=== PATIENT | female | born 1995 | race Caucasian/White ===

== ENCOUNTER → 2016-03-04 | Outpatient (REF) | payer BC | LOC: M LAB REF 13:02 | PROVIDERS: ATTEND Obstetrics & Gynecology | DX: Z34.83 Encounter for supervision of other normal pregnancy, third trimester (principal) ==

== ENCOUNTER → 2016-03-18 | Outpatient (REF) | payer BC | LOC: M LAB REF 17:13 | PROVIDERS: ATTEND Obstetrics & Gynecology | DX: Z34.83 Encounter for supervision of other normal pregnancy, third trimester (principal) ==

== ENCOUNTER 2016-04-15 20:40 | Inpatient (IN) | payer BC ==
[2016-04-15] VITALS (12 sets, daily range): BP systolic 113–141; BP diastolic 51–80
[~2016-04-15] VITALS: Ht 152.4 cm; Wt 102.0 kg
[2016-04-15] MEDS ORDERED: PRENTAB9 PO (21:02)
[2016-04-15 22:23] LABS: MEAN CORPUSCULAR HEMOGLOBIN 27.4 pg (27.0-33.0); MEAN CORPUSCULAR VOLUME 85.7 fl (80.0-96.0); RED CELL DISTRIBUTION WIDTH 14.2 % (11.5-14.5)
[2016-04-15] MEDS ORDERED: FENTANYL 2MCG/ML ROPIVACAINE 0.2% NACL 250 ML CADD As Ordered ONE (22:40)
[2016-04-15] MEDS ORDERED: LACTATED RINGER'S 1000 ML IV STA (22:44)
[2016-04-15] MEDS ORDERED: ONDANSETRON 4MG/2ML VIAL (J2405) IV PRN (23:30)
[2016-04-15] MEDS ORDERED: OXYTOCIN DRIP 30 UNITS in APPROPRIATE DILUENT 1 EA IV SCH (23:30)
[2016-04-15] MEDS ORDERED: diphenhydrAMINE INJ 50MG/ML VIAL (J1200) IV PRN (23:30)
[2016-04-15] MEDS ORDERED: EPIDURAL/PCA KEYS XX PRN (23:30)
[2016-04-15] MEDS ORDERED: EPIDURAL COMMENT XX SCH (23:30)
[2016-04-15] MEDS ORDERED: REFRIGERATOR IV KEYS XX PRN (23:30)
[2016-04-15] MEDS ORDERED: LACTATED RINGER'S 1000 ML IV PRN (23:30)
[2016-04-15] MEDS ORDERED: ePHEDrine SULFATE 25 MG/5 ML(5MG/ML) SYRINGE IV PRN (23:30)
[2016-04-15] MEDS ORDERED: FENTANYL/ROPIVACAINE/NACL CADD 250 ML EPIDURAL SCH (23:30)
[2016-04-15] MEDS ORDERED: NALOXONE INJ 0.4 MG/1 ML VIAL (J2310) IV PRN (23:30)
[2016-04-16] VITALS (55 sets, daily range): BP systolic 89–169; BP diastolic 46–93
[2016-04-16] MEDS: LR 1,000 ML IV SCH ×3 (02:09→19:18)
[2016-04-16] MEDS ORDERED: BICITRA 30ML SOLN UDC PO ONE (17:00)
[2016-04-16] MEDS ORDERED: MORPHINE PRES-FREE INJ 10 MG/10 ML VIAL (J2274) As Ordered ONE (17:50)
[2016-04-16] MEDS ORDERED: MIDAZOLAM INJ 2 MG/2 ML VIAL (J2250) As Ordered ONE (18:28)
[2016-04-16] MEDS ORDERED: ERYTHROMYCIN OPHTH OINT OU ONE (18:45)
[2016-04-16] MEDS ORDERED: PHYTONADIONE 1 MG/0.5 ML SYRINGE (J3430) IM ONE (18:45)
[2016-04-16] MEDS ORDERED: HEPATITIS B VAC *BIRTH DOSE ONLY*(ENGERIX) 10 MCG/0.5 ML SYRINGE IM ONE (18:45)
[2016-04-16] MEDS: OXYTOCIN DRIP 30 UNITS in APPROPRIATE DILUENT 1 EA IV SCH ×2 (19:18→19:49)
[2016-04-16] MEDS ORDERED: PERCOCET 5MG/325MG TAB PO PRN ×2 (19:30→19:45)
[2016-04-16] MEDS ORDERED: RHOGAM 300 MCG (1500 IU) INJ (J2790) IM SCH (19:30)
[2016-04-16] MEDS ORDERED: MOM 30ML SUSPENSION UDC PO PRN (19:30)
[2016-04-16] MEDS ORDERED: MEASLES,MUMPS,RUBELLA VACCINE INJ (MMR-II) (90707) SC SCH (19:30)
[2016-04-16] MEDS ORDERED: KETOROLAC 30 MG/ML VIAL (J1885) IV PRN (19:45)
[2016-04-16] MEDS ORDERED: fentaNYL 100 MCG/2 ML INJECTION (J3010) IV PRN (19:45)
[2016-04-16] MEDS ORDERED: ONDANSETRON 4MG/2ML VIAL (J2405) IV PRN (19:45)
[2016-04-16] MEDS ORDERED: LR 1,000 ML IV SCH (19:45)
--- NOTE | 2016-04-16 20:08 | RO ---
DATE OF PROCEDURE: 04/16/2016 PREPROCEDURE DIAGNOSIS: 1. Arrested dilation. 2. Chorioamnionitis. POSTPROCEDURE DIAGNOSIS: 1. Arrested dilation. 2. Chorioamnionitis. PROCEDURE: Primary low transverse section. SURGEON: Jaqui Sheehan MD MARKETING DIRECTOR: Reza Orozco MD ANESTHESIA: Epidural ESTIMATED BLOOD LOSS: 500 mL URINE OUTPUT: 100 mL INTRAVENOUS FLUIDS: 1700 mL of lactated Ringers solution. PREOPERATIVE ANTIBIOTICS: 2 grams of Ancef. SPECIMENS: Cord blood and placenta. OPERATIVE FINDINGS: Live born female infant, Apgars 8 and 8. Weight 3562 grams, 7 pounds 14 ounces. INDICATION FOR OPERATION: A 21-year-old 1 presented in active labor. Labor progressed, became protracted at approximately 6 cm. She did progress to 9 cm dilation, completely effaced, and -1 station. Arrested there for several hours. She was then consented for a primary low transverse section for arrested dilatation. Shortly before proceeding to section there was a maternal temperature of 101 along with maternal tachycardia. She was diagnosed with chorioamnionitis and has since been treated with Unasyn. DESCRIPTION OF PROCEDURE: After informed consent was obtained and written consent was reviewed, the patient was brought to the operating room where she was prepped and draped in a normal sterile fashion. A Geller catheter had previously been placed and set to gravity. Anesthesia was tested and deemed to be adequate. A Pfannenstiel skin incision was then made and carried down through the underlying rectus fascia. The fascia was scored. This incision was extended bilaterally. The fascia was then dissected off the underlying rectus muscles both superiorly and inferiorly. The rectus muscles were in the midline. The peritoneum was then entered. The vesicoureteral peritoneum was then identified, was tented and excised to create a bladder flap. The bladder blade was then placed to retract back the bladder. A curvilinear incision was made in the lower uterine segment. head was then brought to level of the incision and was delivered atraumatically. This was followed by shoulder and corpus. Cord was clamped times two and was cut. was taken over to the warmer with a good cry. Cord blood was then obtained. The placenta was drained and delivered grossly intact. The uterus was then exteriorized and cleaned of all clots and debris. The uterus incision was then closed in two layers using #0 Vicryl first layer in a running locking fashion, followed by a second layer for imbrication in a running nonlocking fashion. The abdomen was then suctioned. The uterus was returned in the patient's abdomen, was inspected and noted to be hemostatic. The anterior peritoneum was then reapproximated with #3-0 Vicryl. The rectus muscles then reapproximated with #3-0 Vicryl. The Fascia was then closed with #0 Vicryl in a running nonlocking fashion. The subcutaneous tissue was then irrigated and suctioned, Reza's fascia was reapproximated in #3-0 Vicryl. Subdermal stitches were placed with #3-0 Vicryl and the skin was closed with #4-0 Monocryl in a subcuticular fashion. The incision was then cleaned and dried. Mastisol was applied above and below the incisoin. Steri-Strips were applied over the incision. The incision was dressed. The patient was then taken to the recovery room in stable condition. Counts were correct and the couple has decided to name their daughter, Dinorah. ODALIS
[2016-04-16] MEDS: DOCUSATE SODIUM 100 MG CAP PO PRN (21:04)
[2016-04-16] MEDS ORDERED: NALBUPHINE HCL 10 MG/ML AMP (J2300) IV STA (22:09)
[2016-04-17] MEDS: OXYTOCIN DRIP 30 UNITS in APPROPRIATE DILUENT 1 EA IV SCH ×2 (00:28→00:59)
[2016-04-17] MEDS: AMPICILLIN SOD/SULBACTAM SOD 3 GM in D5W MINI-BAG PLUS 100 ML IV SCH ×5 (01:30→19:43)
[2016-04-17] MEDS: KETOROLAC 30 MG/ML VIAL (J1885) IV SCH ×4 (01:30→13:54)
[2016-04-17 02:21] VITALS: BP 95/55
[2016-04-17] MEDS: LR 1,000 ML IV SCH ×3 (03:18→19:18)
[2016-04-17 06:07] VITALS: BP 102/57
[2016-04-17 06:50] LABS: MEAN CORPUSCULAR HEMOGLOBIN 27.9 pg (27.0-33.0); MEAN CORPUSCULAR HGB CONC 32.2 g/dl (32.0-36.5); MEAN CORPUSCULAR VOLUME 86.6 fl (80.0-96.0); RED CELL DISTRIBUTION WIDTH 14.5 % (11.5-14.5); WHITE BLOOD COUNT 23.6 K/mm3 (4.0-10.0)
[2016-04-17] MEDS ORDERED: IBUP800T23 PO (07:54)
[2016-04-17] MEDS ORDERED: OXYC1TAB23 PO (08:00)
[2016-04-17] MEDS: PRENATAL VITAMIN TAB PO SCH (09:00)
[2016-04-17 10:00] VITALS: BP 107/53
[2016-04-17 15:52] VITALS: BP 118/62
[2016-04-17] MEDS: PERCOCET 5MG/325MG TAB PO PRN ×2 (15:57→22:25)
[2016-04-17 17:58] VITALS: BP 109/61
[2016-04-17] MEDS: DOCUSATE SODIUM 100 MG CAP PO PRN (20:45)
[2016-04-17] MEDS: IBUPROFEN 800 MG TAB PO SCH (20:45)
[2016-04-17 22:05] VITALS: BP 114/58
[2016-04-18] MEDS: AMPICILLIN SOD/SULBACTAM SOD 3 GM in D5W MINI-BAG PLUS 100 ML IV SCH ×2 (02:48→07:57)
[2016-04-18 05:56] VITALS: BP 106/56
[2016-04-18] MEDS: IBUPROFEN 800 MG TAB PO SCH (06:02)
[2016-04-18] MEDS: PERCOCET 5MG/325MG TAB PO PRN (06:03)
[2016-04-18] MEDS: OXYTOCIN DRIP 30 UNITS in APPROPRIATE DILUENT 1 EA IV SCH (07:36)
[2016-04-18] MEDS: PRENATAL VITAMIN TAB PO SCH (07:57)
--- NOTE | 2016-04-18 09:38 | DSES ---
DATE OF ADMISSION: 04/15/2016 DATE OF DISCHARGE: 04/18/2016 DISCHARGE DIAGNOSIS: Primary low transverse section, postop day 2, stable condition. HISTORY: Prachi Bowen is a 21-year-old 1, para 1-0-0-1 now who was admitted to labor and delivery in active labor. A diagnosis of arrest of dilation and chorioamnionitis was made and the decision to have a primary section. Surgeon Dr. Jaqui Sheehan, assistant softball coach Dr. Reza Orozco. Her surgery was complicated. She delivered a live female weighing 3562 grams, 7 pounds 14 ounces, scores 8 and 8. The is in the intensive care unit because of the diagnosis of chorioamnionitis. The postoperative course has been uncomplicated. She has been out of bed for self care, rochelle care. She has ambulated to the intensive care unit. She is breast-feeding. She denies any complaints today. She denies dizziness, heart palpitations. She does desire discharge. Her pain has been well controlled with p.o. Percocet. OBJECTIVE: Vital signs stable. Temperature 95.9, pulse 92, respirations 17, blood pressure 105/56. On 04/15/2016 her hemoglobin was 10.9, hematocrit 34.2, platelets 293. On 04/17/2016 her hemoglobin was 8.9, hematocrit 27.7, and platelets 245. Her breasts are soft and nontender. Her abdomen is fundus firm, one fingerbreadth below the umbilicus. Her incision has Steri-Strips are in place. There is a scant amount of bloody drainage. There is no redness. No warmth. No edema. Her perineum is intact. Lochia rubra scant. Bilateral lower extremities with bilateral edema +2 pitting. Heart rate is regular rhythm. Lungs are clear to auscultate. PLAN: Discharge the patient home today. I did review discharge instructions including breast care, incision care, rochelle care, pelvic rest, activity and lifting restrictions, access to care and other danger signs which to report to her provider. Prescriptions for Percocet 5/325 have been E-prescribed by surgeon. She is to take 1-2 tablets every 6 hours as needed for pain as needed. She is to follow up at [facility] for a 2-week incision check and a 6-week visit.
== END 2016-04-18 10:30 | disposition home or self-care (01) | DRG 540 ==
LOC: M LDO 20:40 → M LDI 21:12 → M OBS 04-16 20:16
PROVIDERS: ADMIT Obstetrics & Gynecology; ATTEND Obstetrics & Gynecology
PROC: 10D00Z1 Extraction of Products of Conception, Low, Open Approach (ICD-10-PCS; principal; 2016-04-16 19:26)
DX: O62.0 Primary inadequate contractions (principal); O41.1230 Chorioamnionitis, third trimester, not applicable or unspecified; Z37.0 Single live birth; Z3A.39 39 weeks gestation of pregnancy

== ENCOUNTER 2016-04-20 23:10 | Emergency (ER) | payer BC ==
[~2016-04-20 23:10] MED LIST: IBUP800T23 PO; OXYC1TAB23 PO; PRENTAB9 PO
[2016-04-21 00:11] LABS: BASO % 0.3 % (0.0-1.0); EOS # 0.4 K/mm3 (0.0-0.50); EOS % 4.7 % (0.0-3.0); LARGE UNSTAINED CELL # 0.1 K/mm3 (0.0-0.4); LARGE UNSTAINED CELL % 1.1 % (0.0-4.0); LYMPH # 1.9 K/mm3 (1.5-6.5); LYMPH % 22.7 % (24.0-44.0); MEAN CORPUSCULAR HEMOGLOBIN 26.7 pg (27.0-33.0); MEAN CORPUSCULAR HGB CONC 31.5 g/dl (32.0-36.5); MEAN CORPUSCULAR VOLUME 84.8 fl (80.0-96.0); MONO # 0.4 K/mm3 (0.0-0.8); MONO % 5.2 % (0.0-5.0); NEUTROPHILS # 5.2 K/mm3 (1.8-7.7); PLATELET COUNT, AUTOMATED 333 k/mm3 (150-450); RED CELL DISTRIBUTION WIDTH 14.1 % (11.5-14.5); WHITE BLOOD COUNT 7.9 K/mm3 (4.0-10.0)
[2016-04-21 00:34] LABS: ALBUMIN 2.1 GM/DL (3.2-5.2); ALBUMIN/GLOBULIN RATIO 0.49 (1.00-1.93); ALKALINE PHOSPHATASE 125 U/L (45-117); ALT/SGPT 38 U/L (12-78); ANION GAP 8 MEQ/L (8-16); AST/SGOT 44 U/L (15-37); BILIRUBIN,DIRECT < 0.1 MG/DL (0.0-0.2); BILIRUBIN,TOTAL 0.2 MG/DL (0.2-1.0); BLOOD UREA NITROGEN 14 MG/DL (7-18); CARBON DIOXIDE LEVEL 26 MEQ/L (21-32); CHLORIDE LEVEL 106 MEQ/L (98-107); CREATININE FOR GFR 0.62 MG/DL (0.55-1.02); GLOMERULAR FILTRATION RATE > 60.0 (>60); GLUCOSE, FASTING 89 MG/DL (70-105); SODIUM LEVEL 140 MEQ/L (136-145); TOTAL PROTEIN 6.4 GM/DL (6.4-8.2)
--- NOTE | 2016-04-21 02:20 | REPUSA ---
CLINICAL HISTORY: Edema. COMMENTS: Real time sonography with duplex doppler of the extremities bilaterally was performed with attention to the major deep venous structures. Evaluation reveals the common femoral, superficial femoral and popliteal veins bilaterally to be comp letely compressible without intraluminal thrombus. There is normal spontaneous phasic flow and augmen tation in all deep veins. The greater saphenous/common femoral vein junctions are patent bilaterally. IMPRESSION: No evidence of DVT in the lower extremities bilaterally. Thank you for your kind referral of this patient.
--- NOTE | 2016-04-21 03:40 | REPUSA ---
CLINICAL HISTORY: Shortness of breath. TECHNIQUE: Multiple axial CT images were obtained through chest with IV contrast material. MPR haines l and sagittal sequences were obtained. COMMENTS: There is no evidence of pleural or parenchymal mass. There are no pleural effusions. There is no evid ence of hilar or mediastinal lymphadenopathy. The heart and great vessels are within normal limits. Bilateral basilar atelectatic pulmonary changes. The visualized portions of the liver are of uniform attenuation without mass or defect. There is no i ntra or extrahepatic biliary ductal dilatation. The spleen is unremarkable. The visualized pancreas i s of normal contour and attenuation characteristics. There is no evidence of adrenal mass. The visual ized portions of the kidneys present no abnormalities. The bony structures are free of lytic or blastic lesions. Moderate large bowel fecal stasis. IMPRESSION: Bilateral basilar atelectatic pulmonary changes. Thank you for your kind referral of this patient.
--- NOTE | 2016-04-21 03:50 | REPUSA ---
CLINICAL HISTORY: Abdominal pain. TECHNIQUE: Multiple axial, sagittal and coronal CT images were obtained through the abdomen and pelvi s without administration of oral or IV contrast material. COMMENTS: The liver is of uniform attenuation without mass or defect. There is no intra or extrahepatic biliary ductal dilatation. The spleen is normal. The gallbladder is distended. The pancreas is of normal con tour and attenuation characteristics. There is no evidence of adrenal mass. The kidneys are normal in size, shape and configuration. No renal or ureteral calculi are identified. There is no hydroureter or hydronephrosis. There is no evidence for appendicitis. There is no bowel wall thickening. No evidence for small or la rge bowel obstruction. There is no evidence of abdominal ascites or lymphadenopathy. There is no evidence of intrinsic or extrinsic bladder mass. There is no pelvic ascites or lymphadeno jefferson. Moderate-sized fecal stasis. Post gravid uterus. Free fluid and fat stranding in the pelvis. Diffuse thickening of the bladder. Cutaneous fat stranding and edema of the lower aspect of the anterior abdominal wall from recent surg ical intervention. Images of the lung bases show no evidence of pleural or parenchymal mass. There are no pleural effusi ons. Bilateral basilar atelectatic pulmonary changes. The bony structures are free of lytic or blastic lesions. IMPRESSION: Post gravid uterus. Surgical changes. No drainable fluid collection. Subcutaneous fat stranding with a soft tissue emphysema of the lower aspect of the anterior abdominal wall. Probably postsurgical. Constipation. Distended gallbladder. Thank you for your kind referral of this patient.
[2016-04-21] MEDS ORDERED: FUROSEMIDE 20 MG/2 ML VIAL (J1940) As Ordered ONE (04:29)
--- NOTE | 2016-04-21 05:19 | EDDOCDS ---
Physician Documentation [facility] Name: Prachi Bowen Age: 21 yrs Sex: Female : 1995 Arrival Date: 04/20/2016 Time: 23:10 Bed 6 Private MD: Alma Delia Irwin Disposition: 04/21/16 05:04 Discharged to Home/Self Care. Impression: Edema, not elsewhere classified. - Condition is Stable. - Discharge Instructions: Edema, Edema, [id number]. - Prescriptions for Lasix 20 mg Oral Tablet - take 1 tablet by ORAL route once daily; 10 tablet. - Medication Reconciliation, Local Pharmacy Hours form. - Follow up: Jaqui Sheehan MD; When: As previously arranged; Reason: Continuance of care. - Problem is an acute exacerbation. - Symptoms have improved. - Notes: YOUR BLOOD WORK INDICATES THAT YOU ARE RETAINING FLUID. I SPOKE WITH DR. SHEEHAN WHO FEELS IT IS LIKELY DUE TO THE LARGE AMOUNT OF FLUID YOU RECEIVED DURING YOUR INDUCTION. TAKE THE FLUID PILLS PRESCRIBED AND FOLLOW UP WITH YOUR OBGYN PREVIOUSLY ARRANGED. Historical: - Allergies: IODINEIODINE CONTAINING; Betadine; - Home Meds: 1. Percocet 5-325 mg Oral tab 1 tab every 4 hours 2. ibuprofen 600 mg Oral tab 1 tab 4 times per day - PMHx: brain cyst; - PSHx: Left hand web removal; c section; - Social history: Smoking status: Patient states was never smoker of tobacco. No barriers to communication noted, The patient speaks fluent Georgian, Speaks appropriately for age. - Family history: Pertinent for mother dx CHF after first childbirth. - : The pt / caregiver states he / she is not on anticoagulants. Home medication list is obtained from the patient. - Exposure Risk Screening:: None identified. Vital Signs: 04/20 23:11 BP 135 / 70; Pulse 91; Resp 18 S; Temp 98.7(O); Pulse Ox 100% on R/A; Weight 121.11 kg gr2 / 267 lbs (R); Height 5 ft. 1 in. (154.94 cm) (R); Pain 8/10; 04/21 01:31 BP 122 / 58 (auto/); mv5 01:32 Pulse Ox 100% ; mv5 02:01 BP 130 / 62 (auto/); mv5 02:01 Pulse 85; Resp 16; Pulse Ox 96% ; mv5 03:31 BP 127 / 59; Pulse 75; Resp 16; Pulse Ox 95% on R/A; mv5 03:39 BP 135 / 62 (auto/); mv5 03:40 Pulse 90; Resp 18; Pulse Ox 95% ; mv5 04:09 BP 138 / 65 (auto/); mv5 04:10 Pulse 86; Resp 16; Pulse Ox 94% ; mv5 05:11 BP 114 / 59 (auto/); mv5 05:11 Pulse 89; Resp 16; Temp 99.1(TE); Pulse Ox 99% ; mv5 02/ 23:11 Body Mass Index 50.45 (121.11 kg, 154.94 cm) gr2 MDM: 00:01 Senior [employer] Laboratory Director/Pulse Ox/q 30 min VS ordered. mm11 00:01 IV Saline Lock ordered. mm11 00:01 Rhythm Strip to chart ordered. mm11 00:01 Undress patient appropriately for examination ordered. mm11 00:02 ECHOCARDIOGRAM,DOPPLER/COLOR FLOW+CARDIAG ordered. EDMS 00:02 B-Type Natiuretic Peptide Ordered. EDMS 00:02 Basic Metabolic Profile Ordered. EDMS 00:02 CBC with Diff Ordered. EDMS 00:02 Cardiac Injury Profile Ordered. EDMS 00:02 Troponin Ordered. EDMS 00:03 ECG WITH READING ER PHYS+CARDIAG ordered. EDMS 00:03 Chest, 2 View (pa\E\lat) Ordered. EDMS 00:03 UA Ordered. EDMS 00:09 LIVER PROFILE Ordered. EDMS 00:26 Duplex, Ext LOWER veins, bilat Ordered. EDMS 01:03 Financial registration complete. gjb 01:41 B-Type Natiuretic Peptide Reviewed. mm11 01:41 Basic Metabolic Profile Reviewed. mm11 01:41 CBC with Diff Reviewed. mm11 01:41 LIVER PROFILE Reviewed. mm11 01:41 Cardiac Injury Profile Reviewed. mm11 01:41 Troponin Reviewed. mm11 01:44 CT Chest Without Contrast Ordered. EDMS 01:44 CT ABD & PELVIS: No Contrast Ordered. EDMS 02:01 [facility] Payment Agreement was scanned into [employer] and attached to record. gjb 02:36 UA Reviewed. mm11 02:36 Duplex, Ext LOWER veins, bilat Reviewed. mm11 04:24 Furosemide 20 mg IVP once ordered. mm11 Administered Medications: 04:33 Drug: Furosemide 20 mg [furosemide 10 mg/mL injection solution (2 mL)] Route: IVP; mv5 Site: left hand; 05:18 Follow up: Response: No Adverse Reaction mv5 Signatures: Dispatcher [employer] EDMS Mikey Lim, DO mm11 Alicia Khan RN RN [id number] Bernice Snow Megan, RN RN mv5 The chart was reviewed and I authenticate all verbal orders and agree with the evaluation and treatment provided.Corrections: (The following items were deleted from the chart) 00:09 00:03 LIVER PROFILE+LAB ordered. EDMS EDMS 00:26 00:05 Duplex, Ext,LOWER veins,unilat+US ordered. EDMS EDMS Attachments: 02:01 [facility] Payment Agreement julius MTDD
--- NOTE | 2016-04-21 05:19 | EDDOCDS ---
Nurse's Notes [facility] Name: Prachi Bowen Age: 21 yrs Sex: Female : 1995 Arrival Date: 04/20/2016 Time: 23:10 Bed 6 Private MD: Alma Delia Irwin Diagnosis: Edema, not elsewhere classified Presentation: 04/20 23:15 Presenting complaint: Patient states: C section Thursday night, reports bilateral leg sls1 swelling, increasing in severity up to abdomen, with pain pt does have noted bilateral plus three non pitting edema, reports shortness of breath, and pain with flexion. Pt also reports 27 pound weight gain. Adult Sepsis Screening: The patient does not have new or worsening altered mentation. Patient's respiratory rate is less than 22. Systolic blood pressure is greater than 100. Patient has a qSOFA score of 0- Negative Sepsis Screen. Suicide/Homicide risk assessment- the patient denies having any suicidal and/or homicidal ideations and does not present with any other emotional, behavioral or mental health complaints. Status: Patient is not a community service patrol officer or dependent. Transition of care: patient was not received from another setting of care. 23:15 Acuity: ALBERTO Level 3 sls1 23:15 Method Of Arrival: Walkin/Carried/Asstd sls1 Triage Assessment: 23:17 General: Appears in no apparent distress, Behavior is appropriate for age, cooperative. sls1 Pain: Location: right leg and left leg Pain currently is 9 out of 10 on a pain scale. Pt Declines HIV testing. Neurological: No deficits noted. Cardiovascular: pt has noted bilateral non pitting plus three edema. Respiratory: Airway is patent Respiratory effort is even, unlabored, Respiratory pattern is regular, symmetrical, Reports shortness of breath at rest on exertion. Derm: No deficits noted. Historical: - Allergies: IODINEIODINE CONTAINING; Betadine; - Home Meds: 1. Percocet 5-325 mg Oral tab 1 tab every 4 hours 2. ibuprofen 600 mg Oral tab 1 tab 4 times per day - PMHx: brain cyst; - PSHx: Left hand web removal; c section; - Social history: Smoking status: Patient states was never smoker of tobacco. No barriers to communication noted, The patient speaks fluent Portuguese, Speaks appropriately for age. - Family history: Pertinent for mother dx CHF after first childbirth. - : The pt / caregiver states he / she is not on anticoagulants. Home medication list is obtained from the patient. - Exposure Risk Screening:: None identified. Screenin/20 02:02 Screening information is obtained from the patient. Fall risk: No risks identified. mv5 Assistance ADL's: requires no assistance with activities of daily living. Abuse/DV Screen: The patient / caregiver reports he/she is: not in a situation that causes fear, pain or injury. Nutritional screening: No deficits noted. Advance Directives: There is no active DNR order. home support is adequate. Assessment: 02:02 General: Appears in no apparent distress, comfortable, well nourished, well groomed, mv5 Behavior is cooperative, pleasant. Pain: Location: right leg and left leg Pain currently is 5 out of 10 on a pain scale. Neurological: Level of Consciousness is awake, alert, Oriented to person, place, time. Cardiovascular: Capillary refill < 3 seconds. Respiratory: Airway is patent Respiratory effort is even, unlabored, Respiratory pattern is regular, symmetrical. Derm: Skin is pink, warm & dry. 03:05 General: Appears in no apparent distress, comfortable. Neurological: Level of mv5 Consciousness is awake, alert, Oriented to person, place, time. Respiratory: Airway is patent Respiratory effort is even, unlabored, Respiratory pattern is regular, symmetrical. Derm: Skin is pink, warm & dry. 04:08 General: Appears in no apparent distress, to be sleeping. Neurological: Oriented to mv5 person, place, time. Respiratory: Airway is patent Respiratory effort is even, unlabored, Respiratory pattern is regular, symmetrical. Derm: Skin is pink, warm & dry. 04:34 General: Appears in no apparent distress, comfortable. Neurological:. Neurological: No mv5 deficits noted. Respiratory: Airway is patent Respiratory effort is even, unlabored. Derm: Skin is pink, warm & dry. 05:15 General: Appears in no apparent distress, comfortable, Behavior is cooperative, mv5 pleasant. Neurological: No deficits noted. Respiratory: Airway is patent Respiratory effort is even, unlabored, Respiratory pattern is regular, symmetrical. Derm: Skin is pink, warm & dry. Vital Signs: 04/20 23:11 BP 135 / 70; Pulse 91; Resp 18 S; Temp 98.7(O); Pulse Ox 100% on R/A; Weight 121.11 kg gr2 (R); Height 5 ft. 1 in. (154.94 cm) (R); Pain 8/10; 04/21 01:31 BP 122 / 58 (auto/); mv5 01:32 Pulse Ox 100% ; mv5 02:01 BP 130 / 62 (auto/); mv5 02:01 Pulse 85; Resp 16; Pulse Ox 96% ; mv5 03:31 BP 127 / 59; Pulse 75; Resp 16; Pulse Ox 95% on R/A; mv5 03:39 BP 135 / 62 (auto/); mv5 03:40 Pulse 90; Resp 18; Pulse Ox 95% ; mv5 04:09 BP 138 / 65 (auto/); mv5 04:10 Pulse 86; Resp 16; Pulse Ox 94% ; mv5 05:11 BP 114 / 59 (auto/); mv5 05:11 Pulse 89; Resp 16; Temp 99.1(TE); Pulse Ox 99% ; mv5 04/20 23:11 Body Mass Index 50.45 (121.11 kg, 154.94 cm) gr2 Vitals: 04/20 23:11 Log In Time: April 20, 2016 at 23:11. gr2 ED Course: 23:10 Patient visited by Fariba Tai. gr2 23:10 Patient moved to Waiting gr2 23:11 Alma Delia Irwin MD is Private Physician. gr2 23:12 Patient visited by Fariba Tai. gr2 23:12 Patient moved to Pre RCE gr2 23:16 Triage Initiated sls1 23:19 Patient moved to Waiting sls1 23:28 Denise Whitt,RN is Primary Nurse. mar 24:28 Patient moved to 6 mar 23:45 Mikey Lim DO is Attending Physician. mm11 23:45 Patient visited by Mikey Lim DO. mm11 04/21 00:00 Patient visited by Mikey Lim DO. mm11 00:12 Patient moved to Ultrasound en 00:16 Patient visited by Prachi Newman PCA. dale 00:16 EKG done. (by ED staff). Reviewed by Mikey Lim DO. dale 01:05 Patient moved to 6 en 01:06 Patient moved to Radiology santos 01:44 Patient moved to 6 santos 01:46 Patient visited by Prachi Newman PCA. dale 02:01 [facility] Payment Agreement was scanned into [employer] and attached to record. gjb 02:02 Inserted saline lock: 22 gauge in left hand The patient tolerated the procedure well. mv5 02:07 UA Sent. dale 02:21 Duplex, Ext LOWER veins, bilat Returned. EDMS 02:27 Patient visited by Denise Whitt,EVER. mv5 03:04 Patient visited by Denise Whitt,EVER. mv5 03:42 Patient visited by Denise Whitt,EVER. mv5 03:55 CT Chest Without Contrast Returned. EDMS 03:55 CT ABD & PELVIS: No Contrast Returned. EDMS 04:30 Patient visited by Mikey Lim DO. mm11 05:01 Patient visited by Mikey Lim DO. mm11 05:01 Jaqui Sheehan MD is Referral Physician. mm11 05:11 The patient / caregiver is instructed regarding the plan of care and ED course. mv5 05:11 Discontinued lock intact, bleeding controlled, pressure dressing applied, No mv5 redness/swelling at site. No procedures done that require assistance. Administered Medications: 04:33 Drug: Furosemide 20 mg [furosemide 10 mg/mL injection solution (2 mL)] Route: IVP; mv5 Site: left hand; 05:18 Follow up: Response: No Adverse Reaction mv5 Output: 04:58 Urine: 800.00ml (Voided); Total: 800.00ml. mv5 05:11 Urine: 400.00ml (Voided); Total: 1200.00ml. mv5 Order Results: Lab Order: B-Type Natiuretic Peptide; SPEC'M 04/21/16 00:00 Test: BRAIN NATRIURETIC PEPTIDE; Value: 157; Range: <100; Abnormal: Above high normal; Units: PG/ML; Status: F Lab Order: Basic Metabolic Profile; SPEC'M 04/21/16 00:00 Test: GLUCOSE, FASTING; Value: 89; Range: 70-105; Units: MG/DL; Status: F Test: BLOOD UREA NITROGEN; Value: 14; Range: 7-18; Units: MG/DL; Status: F Test: CREATININE FOR GFR; Value: 0.62; Range: 0.55-1.02; Units: MG/DL; Status: F Test: GLOMERULAR FILTRATION RATE; Value: > 60.0; Range: >60; Status: F Test: SODIUM LEVEL; Value: 140; Range: 136-145; Units: MEQ/L; Status: F Test: POTASSIUM SERUM; Value: 4.0; Range: 3.5-5.1; Units: MEQ/L; Status: F Test: CHLORIDE LEVEL; Value: 106; Range: 98-107; Units: MEQ/L; Status: F Test: CARBON DIOXIDE LEVEL; Value: 26; Range: 21-32; Units: MEQ/L; Status: F Test: ANION GAP; Value: 8; Range: 8-16; Units: MEQ/L; Status: F Test: CALCIUM LEVEL; Value: 8.0; Range: 8.5-10.1; Abnormal: Below low normal; Units: MG/DL; Status: F Test Note: ; Units are mL/min/1.73 m2 Chronic Kidney Disease Staging per NKF: Stage I & II GFR >=60 Normal to Mildly Decreased Stage III GFR 30-59 Moderately Decreased Stage IV GFR 15-29 Severely Decreased Stage V GFR <15 Very Little GFR Left ESRD GFR <15 on [facility] Lab Order: CBC with Diff; SPEC'M 04/21/16 00:00 Test: WHITE BLOOD COUNT; Value: 7.9; Range: 4.0-10.0; Units: K/mm3; Status: F Test: RED BLOOD COUNT; Value: 3.35; Range: 4.00-5.40; Abnormal: Below low normal; Units: M/mm3; Status: F Test: HEMOGLOBIN; Value: 8.9; Range: 12.0-16.0; Abnormal: Below low normal; Units: g/dl; Status: F Test: HEMATOCRIT; Value: 28.4; Range: 36.0-47.0; Abnormal: Below low normal; Units: %; Status: F Test: MEAN CORPUSCULAR VOLUME; Value: 84.8; Range: 80.0-96.0; Units: fl; Status: F Test: MEAN CORPUSCULAR HEMOGLOBIN; Value: 26.7; Range: 27.0-33.0; Abnormal: Below low normal; Units: pg; Status: F Test: MEAN CORPUSCULAR HGB CONC; Value: 31.5; Range: 32.0-36.5; Abnormal: Below low normal; Units: g/dl; Status: F Test: RED CELL DISTRIBUTION WIDTH; Value: 14.1; Range: 11.5-14.5; Units: %; Status: F Test: PLATELET COUNT, AUTOMATED; Value: 333; Range: 150-450; Units: k/mm3; Status: F Test: NEUTROPHILS %; Value: 66.0; Range: 36.0-66.0; Units: %; Status: F Test: LYMPH %; Value: 22.7; Range: 24.0-44.0; Abnormal: Below low normal; Units: %; Status: F Test: MONO %; Value: 5.2; Range: 0.0-5.0; Abnormal: Above high normal; Units: %; Status: F Test: EOS %; Value: 4.7; Range: 0.0-3.0; Abnormal: Above high normal; Units: %; Status: F Test: BASO %; Value: 0.3; Range: 0.0-1.0; Units: %; Status: F Test: LARGE UNSTAINED CELL %; Value: 1.1; Range: 0.0-4.0; Units: %; Status: F Test: NEUTROPHILS #; Value: 5.2; Range: 1.8-7.7; Units: K/mm3; Status: F Test: LYMPH #; Value: 1.9; Range: 1.5-6.5; Units: K/mm3; Status: F Test: MONO #; Value: 0.4; Range: 0.0-0.8; Units: K/mm3; Status: F Test: EOS #; Value: 0.4; Range: 0.0-0.50; Units: K/mm3; Status: F Test: BASO #; Value: 0.0; Range: 0.0-0.2; Units: K/mm3; Status: F Test: LARGE UNSTAINED CELL #; Value: 0.1; Range: 0.0-0.4; Units: K/mm3; Status: F Lab Order: Cardiac Injury Profile; SPEC'M 04/21/16 00:00 Test: CPK CREATINE PHOSPHOKINASE; Value: 82; Range: 26-192; Units: U/L; Status: F Test: CK-MB VALUE MASS; Value: 1.9; Range: 0.0-3.6; Units: NG/ML; Status: F Test: MB/CK RELATIVE INDEX; Value: 2.31; Range: < OR =4; Status: F Test Note: ; DIAGNOSIS CRITERIA MMB ng/ml Relative Index (RI) NON-AMI < or = 5 N/A SUBRAMANIAN ZONE > 5 < or = 4 AMI > 5 > 4 Lab Order: Troponin; SPEC'M 04/21/16 00:00 Test: TROPONIN I; Value: < 0.02; Range: < 0.10; Units: NG/ML; Status: F Test Note: ; Troponin I Reference Interval for Smailex LOCI: 99th Percentile= 0.00-0.045 ng/ml Risk Stratification: <= 0.10 ng/ml Decreased Risk for Adverse Clinical Events. 0.10-1.50 ng/ml Increased Risk for Adverse Clinical Events. Evaluation of additional criterion and/or repeat testing in 2-6 hours is suggested to rule out myocardial damage. >= 1.50 ng/ml Indicative of Myocardial Injury. Lab Order: UA; SPEC'M 04/21/16 02:05 Test: APPEARANCE, URINE; Value: HAZY; Range: CLEAR; Status: F Test: COLOR, URINE; Value: YELLOW; Range: YELLOW; Status: F Test: PH,URINE; Value: 6.0; Range: 5.0-9.0; Units: UNITS; Status: F Test: SPECIFIC GRAVITY URINE AUTO; Value: 1.014; Range: 1.002-1.035; Status: F Test: PROTEIN, URINE AUTO; Value: NEGATIVE; Range: NEGATIVE; Units: mg/dL; Status: F Test: GLUCOSE, URINE (UA) AUTO; Value: NEGATIVE; Range: NEGATIVE; Units: mg/dL; Status: F Test: KETONE, URINE AUTO; Value: NEGATIVE; Range: NEGATIVE; Units: mg/dL; Status: F Test: UROBILINOGEN, URINE AUTO; Value: 0.2; Range: 0.0-2.0; Units: mg/dL; Status: F Test: BILIRUBIN, URINE AUTO; Value: NEGATIVE; Range: NEGATIVE; Status: F Test: NITRITE, URINE AUTO; Value: NEGATIVE; Range: NEGATIVE; Status: F Test: LEUKOCYTE ESTERASE, URINE AUTO; Value: 2+; Range: NEGATIVE; Abnormal: Above high normal; Status: F Test: BLOOD, URINE BLOOD; Value: 3+; Range: NEGATIVE; Abnormal: Above high normal; Status: F Test: WBC, URINE AUTO; Value: 20; Range: 0-3; Abnormal: Above high normal; Units: /HPF; Status: F Test: RBC, URINE AUTO; Value: 85; Range: 0-3; Abnormal: Above high normal; Units: /HPF; Status: F Test: BACTERIA, URINE AUTO; Value: NEGATIVE; Range: NEGATIVE; Status: F Test: SQUAMOUS EPITHELIAL CELL UR AU; Value: 4; Range: 0-6; Units: /HPF; Status: F Test: MUCUS, URINE; Value: SMALL; Range: NEGATIVE; Status: F Test: HYALINE CAST, URINE AUTO; Value: 0; Range: 0-1; Units: /LPF; Status: F Test: AMORPHOUS SEDIMENT; Value: SMALL; Range: NEGATIVE; Abnormal: Above high normal; Status: F Lab Order: LIVER PROFILE; SPEC'M 04/21/16 00:00 Test: AST/SGOT; Value: 44; Range: 15-37; Abnormal: Above high normal; Units: U/L; Status: F Test: ALT/SGPT; Value: 38; Range: 12-78; Units: U/L; Status: F Test: ALKALINE PHOSPHATASE; Value: 125; Range: 45-117; Abnormal: Above high normal; Units: U/L; Status: F Test: BILIRUBIN,TOTAL; Value: 0.2; Range: 0.2-1.0; Units: MG/DL; Status: F Test: BILIRUBIN,DIRECT; Value: < 0.1; Range: 0.0-0.2; Units: MG/DL; Status: F Test: TOTAL PROTEIN; Value: 6.4; Range: 6.4-8.2; Units: GM/DL; Status: F Test: ALBUMIN; Value: 2.1; Range: 3.2-5.2; Abnormal: Below low normal; Units: GM/DL; Status: F Test: ALBUMIN/GLOBULIN RATIO; Value: 0.49; Range: 1.00-1.93; Abnormal: Below low normal; Status: F Radiology Order: Duplex, Ext LOWER veins, bilat Test: Duplex, Ext LOWER veins, bilat REASON FOR EXAMINATION: Deformity/Swelling; ; CLINICAL HISTORY: Edema.; COMMENTS:; ; Real time sonography with duplex doppler of the extremities bilaterally was performed with attention; to the major deep venous structures.; Evaluation reveals the common femoral, superficial femoral and popliteal veins bilaterally to be comp; letely compressible without intraluminal thrombus. There is normal spontaneous phasic flow and augmen; tation in all deep veins. The greater saphenous/common femoral vein junctions are patent bilaterally.; ; IMPRESSION:; No evidence of DVT in the lower extremities bilaterally.; Thank you for your kind referral of this patient.; ; Radiology Order: CT Chest Without Contrast Test: CT Chest Without Contrast REASON FOR EXAMINATION: Shortness of Breath; ; CLINICAL HISTORY: Shortness of breath.; TECHNIQUE: Multiple axial CT images were obtained through chest with IV contrast material. MPR haines; l and sagittal sequences were obtained.; COMMENTS:; There is no evidence of pleural or parenchymal mass. There are no pleural effusions. There is no evid; ence of hilar or mediastinal lymphadenopathy. The heart and great vessels are within normal limits.; Bilateral basilar atelectatic pulmonary changes.; The visualized portions of the liver are of uniform attenuation without mass or defect. There is no i; ntra or extrahepatic biliary ductal dilatation. The spleen is unremarkable. The visualized pancreas i; s of normal contour and attenuation characteristics. There is no evidence of adrenal mass. The visual; ized portions of the kidneys present no abnormalities.; The bony structures are free of lytic or blastic lesions.; Moderate large bowel fecal stasis.; IMPRESSION:; Bilateral basilar atelectatic pulmonary changes.; Thank you for your kind referral of this patient.; ; ; Radiology Order: CT ABD & PELVIS: No Contrast Test: CT ABD & PELVIS: No Contrast REASON FOR EXAMINATION: NEW ONSET ASCITES; ; CLINICAL HISTORY: Abdominal pain.; TECHNIQUE: Multiple axial, sagittal and coronal CT images were obtained through the abdomen and pelvi; s without administration of oral or IV contrast material.; COMMENTS:; The liver is of uniform attenuation without mass or defect. There is no intra or extrahepatic biliary; ductal dilatation. The spleen is normal. The gallbladder is distended. The pancreas is of normal con; tour and attenuation characteristics. There is no evidence of adrenal mass.; The kidneys are normal in size, shape and configuration. No renal or ureteral calculi are identified.; There is no hydroureter or hydronephrosis.; There is no evidence for appendicitis. There is no bowel wall thickening. No evidence for small or la; rge bowel obstruction. There is no evidence of abdominal ascites or lymphadenopathy.; There is no evidence of intrinsic or extrinsic bladder mass. There is no pelvic ascites or lymphadeno; jefferson. Moderate-sized fecal stasis.; Post gravid uterus. Free fluid and fat stranding in the pelvis. Diffuse thickening of the bladder.; Cutaneous fat stranding and edema of the lower aspect of the anterior abdominal wall from recent surg; ical intervention.; Images of the lung bases show no evidence of pleural or parenchymal mass. There are no pleural effusi; ons. Bilateral basilar atelectatic pulmonary changes.; The bony structures are free of lytic or blastic lesions.; IMPRESSION:; Post gravid uterus.; Surgical changes.; No drainable fluid collection.; Subcutaneous fat stranding with a soft tissue emphysema of the lower aspect of the anterior abdominal; wall. Probably postsurgical.; Constipation.; Distended gallbladder.; Thank you for your kind referral of this patient.; ; Outcome: 05:04 Discharge ordered by Provider. mm11 05:11 Discharge Assessment: Patient awake, alert and oriented x 3. No cognitive and/or mv5 functional deficits noted. Patient verbalized understanding of disposition instructions. patient administered narcotics - no. The following High Risk Discharge criteria are identified: None. Discharged to home with family. Condition: stable. Demonstrated understanding of Pt was receptive of discharge instructions/ teaching. Prescriptions given X 1. CT Study completed. Property sent home with patient. 05:18 Patient left the ED. mv5 Signatures: Dispatcher [employer] EDMS Cally Mendoza RN Laci Michael Matthew, DO DO mm11 Prachi Newman, PROPERTY ASSISTANT PROPERTY ASSISTANT Alicia Brennan RN RN sls1 Fariba Tai gr2 Nortz, Laura en Snow, Bernice gjb Vannedery,Denise,RN RN mv5 Corrections: (The following items were deleted from the chart) 04/20 23:19 23:15 Presenting complaint: Patient states: C section Thursday night, reports sls1 bilateral leg swelling, increasing in severity up to abdomen, with pain pt does have noted bilateral plus three non pitting edema, reports shortness of breath, and pain with flexion sls1 04/21 03:07 02:56 BP 97 / 53 Auto; mv5 mv5 03:07 02:57 Pulse 84bpm; Monitor; Pulse Ox 94%; mv5 mv5 03:07 02:41 BP 98 / 54 Auto; mv5 mv5 03:07 02:42 Pulse 84bpm; Monitor; Pulse Ox 94%; mv5 mv5 03:07 02:26 BP 99 / 56 Auto; mv5 mv5 03:07 02:27 Pulse 84bpm; Monitor; Pulse Ox 94%; mv5 mv5 04:36 03:40 Pulse Ox 95%; mv5 mv5 MTDD
--- NOTE | 2016-04-21 07:57 | REP ---
Clinical: Shortness of breath . Comparison: None of the . Technique: PA and lateral. Findings: The mediastinum and cardiac silhouette are normal. The lung desai are clear and without acute consolidation, effusion, or pneumothorax. The skeletal structures are intact and normal. Impression: 1. No acute cardiopulmonary process. Signed by Alfredo Dewitt MD 04/21/2016 07:48 A
--- NOTE | 2016-04-21 20:08 | ECGEPIP ---
Stationary ECG Study [facility] - ED Test Date: 2016-04-21 Pat Name: ABDIRAHMAN SIMMONS Department: Room: - Gender: F [employer] Cleaning Machine Operator: IgnacioB: 1995 Requested By: DANIELLE Walker Order Number: [id number] Reading MD: Lolita Gil Measurements Intervals [place] Rate: 84 P: 36 CT: 121 QRS: 14 QRSD: 89 T: 32 QT: 337 QTc: 399 Interpretive Statements SINUS RHYTHM INCREASED RATE 12/06/12 Electronically Signed On 04-21-2016 20:08:30 EST by Lolita Gil
--- NOTE | 2016-04-22 05:52 | ECHO ---
DATE OF PROCEDURE: 04/21/2016 AGE: 21 GENDER: Female REFERRING PHYSICIAN: Dr. Mikey Lim. HEIGHT: 61 inches. WEIGHT: 267 pounds. BODY SURFACE AREA: 2.14 sq m. ER PATIENT: INDICATION: Dyspnea. 5 days section. MEASUREMENTS: 2D MEASUREMENTS: RV - 4.0 cm LV- 5.5 cm Septum - 1.0 cm Posterior wall - 1.0 cm Aortic root - 2.4 cm LA - 4.0 cm LVEF - 65% DOPPLER MEASUREMENTS: AV - 1.7 m/s LVOT - 1.3 m/s MV-E: 170 A: 85 EA ratio 1.9 Early mitral deacceleration time - 194 ms E-prime - 12 A-prime - 8 E/E prime ratio - 13.8 PV - 1.1 m/s Pulmonary artery acceleration time - 134 ms RVSP - 37 mmHg IVC - 1.8 cm COMMENTS: Normal sinus rhythm without intraventricular conduction disturbance. Mildly dilated left atrium. Left ventricle upper limits of normal in size. Right heart chamber sizes were normal. LV wall thickness was normal. On real-time imaging from the parasternal and apical projections, wall motion was symmetrical and normal to hyperkinetic. Normal-appearing mitral valvular apparatus and leaflet excursion with no posterior systolic buckling. Three equal size aortic cusps of normal thickness and cusp separation. Normal aortic root size. No apparent intracardiac mass or pericardial effusion. Color flow Doppler study taken from the parasternal and apical projections showed mild mitral and moderate tricuspid but no aortic insufficiency. Guided continuous wave Doppler of her aortic valve showed a normal peak systolic velocity against LV outflow tract obstruction. Pulsed and continuous wave Doppler of her LV inflow tract taken from the apical four-chamber projection showed normal diastolic filling velocities against mitral stenosis. The filling pattern was also normal against LV diastolic dysfunction but current estimated mean left atrial pressure was at least mildly increased at 18 mmHg. Pulsed and continuous wave Doppler of her pulmonary trunk showed a normal peak systolic velocity against right ventricular outflow tract obstruction. Pulmonary artery acceleration time was normal against an elevated pulmonary vascular resistance. Guided continuous wave Doppler of her tricuspid valve allowed our estimation of her right ventricular systolic pressure (mildly increased). Her inferior vena cava was of normal size with normal respiratory collapse against an elevated central venous pressure. CONCLUSIONS: Normal left ventricular size, wall thickness and hyperkinetic wall motion. Mildly dilated left atrium with normal Doppler assessment of LV diastolic function but currently mildly elevated mean left atrial pressure (suggestive of fluid overload). Normal right heart chamber sizes and wall motion with Doppler evidence of mild pulmonary hypertension. Normal IVC size and collapse against a significantly elevated central venous pressure. Normal appearing mitral and tricuspid valvular apparatus with mild mitral and moderate tricuspid insufficiency.
--- NOTE | 2016-04-23 06:19 | EDDOCDS ---
Physician Documentation [facility] Name: Prachi Bowen Age: 21 yrs Sex: Female : 1995 Arrival Date: 04/20/2016 Time: 23:10 Bed 6 Private MD: Alma Delia Irwin Disposition: 04/21/16 05:04 Discharged to Home/Self Care. Impression: Edema, not elsewhere classified. - Condition is Stable. - Discharge Instructions: Edema, Edema, [id number]. - Prescriptions for Lasix 20 mg Oral Tablet - take 1 tablet by ORAL route once daily; 10 tablet. - Medication Reconciliation, Local Pharmacy Hours form. - Follow up: Jaqui Sheehan MD; When: As previously arranged; Reason: Continuance of care. - Problem is an acute exacerbation. - Symptoms have improved. - Notes: YOUR BLOOD WORK INDICATES THAT YOU ARE RETAINING FLUID. I SPOKE WITH DR. SHEEHAN WHO FEELS IT IS LIKELY DUE TO THE LARGE AMOUNT OF FLUID YOU RECEIVED DURING YOUR INDUCTION. TAKE THE FLUID PILLS PRESCRIBED AND FOLLOW UP WITH YOUR OBGYN PREVIOUSLY ARRANGED. Historical: - Allergies: IODINEIODINE CONTAINING; Betadine; - Home Meds: 1. Percocet 5-325 mg Oral tab 1 tab every 4 hours 2. ibuprofen 600 mg Oral tab 1 tab 4 times per day - PMHx: brain cyst; - PSHx: Left hand web removal; c section; - Social history: Smoking status: Patient states was never smoker of tobacco. No barriers to communication noted, The patient speaks fluent [place], Speaks appropriately for age. - Family history: Pertinent for mother dx CHF after first childbirth. - : The pt / caregiver states he / she is not on anticoagulants. Home medication list is obtained from the patient. - Exposure Risk Screening:: None identified. Vital Signs: 04/20 23:11 BP 135 / 70; Pulse 91; Resp 18 S; Temp 98.7(O); Pulse Ox 100% on R/A; Weight 121.11 kg gr2 / 267 lbs (R); Height 5 ft. 1 in. (154.94 cm) (R); Pain 8/10; 04/21 01:31 BP 122 / 58 (auto/); mv5 01:32 Pulse Ox 100% ; mv5 02:01 BP 130 / 62 (auto/); mv5 02:01 Pulse 85; Resp 16; Pulse Ox 96% ; mv5 03:31 BP 127 / 59; Pulse 75; Resp 16; Pulse Ox 95% on R/A; mv5 03:39 BP 135 / 62 (auto/); mv5 03:40 Pulse 90; Resp 18; Pulse Ox 95% ; mv5 04:09 BP 138 / 65 (auto/); mv5 04:10 Pulse 86; Resp 16; Pulse Ox 94% ; mv5 05:11 BP 114 / 59 (auto/); mv5 05:11 Pulse 89; Resp 16; Temp 99.1(TE); Pulse Ox 99% ; mv5 02/ 23:11 Body Mass Index 50.45 (121.11 kg, 154.94 cm) gr2 MDM: 00:01 Courtesy Car Driver/Pulse Ox/q 30 min VS ordered. mm11 00:01 IV Saline Lock ordered. mm11 00:01 Rhythm Strip to chart ordered. mm11 00:01 Undress patient appropriately for examination ordered. mm11 00:02 ECHOCARDIOGRAM,DOPPLER/COLOR FLOW+CARDIAG ordered. EDMS 00:02 B-Type Natiuretic Peptide Ordered. EDMS 00:02 Basic Metabolic Profile Ordered. EDMS 00:02 CBC with Diff Ordered. EDMS 00:02 Cardiac Injury Profile Ordered. EDMS 00:02 Troponin Ordered. EDMS 00:03 ECG WITH READING ER PHYS+CARDIAG ordered. EDMS 00:03 Chest, 2 View (pa\E\lat) Ordered. EDMS 00:03 UA Ordered. EDMS 00:09 LIVER PROFILE Ordered. EDMS 00:26 Duplex, Ext LOWER veins, bilat Ordered. EDMS 01:03 Financial registration complete. gjb 01:41 B-Type Natiuretic Peptide Reviewed. mm11 01:41 Basic Metabolic Profile Reviewed. mm11 01:41 CBC with Diff Reviewed. mm11 01:41 LIVER PROFILE Reviewed. mm11 01:41 Cardiac Injury Profile Reviewed. mm11 01:41 Troponin Reviewed. mm11 01:44 CT Chest Without Contrast Ordered. EDMS 01:44 CT ABD & PELVIS: No Contrast Ordered. EDMS 02:01 [facility] Payment Agreement was scanned into [employer] and attached to record. gjb 02:36 UA Reviewed. mm11 02:36 Duplex, Ext LOWER veins, bilat Reviewed. mm11 04:24 Furosemide 20 mg IVP once ordered. mm11 12:38 T-Sheet-- Draft Copy was scanned into [employer] and attached to record. 15:53 Radiology Report was scanned into [employer] and attached to record. gb 04/22 13:05 ECG/EKG was scanned into [employer] and attached to record. gb Administered Medications: 04/21 04:33 Drug: Furosemide 20 mg [furosemide 10 mg/mL injection solution (2 mL)] Route: IVP; mv5 Site: left hand; 05:18 Follow up: Response: No Adverse Reaction mv5 Signatures: Dispatcher [employer] EDMS Ivania Bryant, Reg Reg gb Mikey Lim, DO DO mm11 Alicia Khan, RN RN sls1 Bernice Snow Megan,RN RN mv5 The chart was reviewed and I authenticate all verbal orders and agree with the evaluation and treatment provided.Corrections: (The following items were deleted from the chart) 00:09 00:03 LIVER PROFILE+LAB ordered. EDMS EDMS 00:26 00:05 Duplex, Ext,LOWER veins,unilat+US ordered. EDMS EDMS Attachments: 02:01 [facility] [place] Agreement gjb 12:38 T-Sheet-- Draft Copy gb 04/22 13:05 ECG/EKG gb Chart Complete MTDD
--- NOTE | 2016-04-23 06:19 | EDDOCDS ---
Physician Documentation [facility] Name: Prachi Bowen Age: 21 yrs Sex: Female : 1995 Arrival Date: 04/20/2016 Time: 23:10 Bed 6 Private MD: Alma Delia Irwin Disposition: 04/21/16 05:04 Discharged to Home/Self Care. Impression: Edema, not elsewhere classified. - Condition is Stable. - Discharge Instructions: Edema, Edema, [id number]. - Prescriptions for Lasix 20 mg Oral Tablet - take 1 tablet by ORAL route once daily; 10 tablet. - Medication Reconciliation, Local Pharmacy Hours form. - Follow up: Jaqui Sheehan MD; When: As previously arranged; Reason: Continuance of care. - Problem is an acute exacerbation. - Symptoms have improved. - Notes: YOUR BLOOD WORK INDICATES THAT YOU ARE RETAINING FLUID. I SPOKE WITH DR. SHEEHAN WHO FEELS IT IS LIKELY DUE TO THE LARGE AMOUNT OF FLUID YOU RECEIVED DURING YOUR INDUCTION. TAKE THE FLUID PILLS PRESCRIBED AND FOLLOW UP WITH YOUR OBGYN PREVIOUSLY ARRANGED. Historical: - Allergies: IODINEIODINE CONTAINING; Betadine; - Home Meds: 1. Percocet 5-325 mg Oral tab 1 tab every 4 hours 2. ibuprofen 600 mg Oral tab 1 tab 4 times per day - PMHx: brain cyst; - PSHx: Left hand web removal; c section; - Social history: Smoking status: Patient states was never smoker of tobacco. No barriers to communication noted, The patient speaks fluent [place], Speaks appropriately for age. - Family history: Pertinent for mother dx CHF after first childbirth. - : The pt / caregiver states he / she is not on anticoagulants. Home medication list is obtained from the patient. - Exposure Risk Screening:: None identified. Vital Signs: 04/20 23:11 BP 135 / 70; Pulse 91; Resp 18 S; Temp 98.7(O); Pulse Ox 100% on R/A; Weight 121.11 kg gr2 / 267 lbs (R); Height 5 ft. 1 in. (154.94 cm) (R); Pain 8/10; 04/21 01:31 BP 122 / 58 (auto/); mv5 01:32 Pulse Ox 100% ; mv5 02:01 BP 130 / 62 (auto/); mv5 02:01 Pulse 85; Resp 16; Pulse Ox 96% ; mv5 03:31 BP 127 / 59; Pulse 75; Resp 16; Pulse Ox 95% on R/A; mv5 03:39 BP 135 / 62 (auto/); mv5 03:40 Pulse 90; Resp 18; Pulse Ox 95% ; mv5 04:09 BP 138 / 65 (auto/); mv5 04:10 Pulse 86; Resp 16; Pulse Ox 94% ; mv5 05:11 BP 114 / 59 (auto/); mv5 05:11 Pulse 89; Resp 16; Temp 99.1(TE); Pulse Ox 99% ; mv5 02/ 23:11 Body Mass Index 50.45 (121.11 kg, 154.94 cm) gr2 MDM: 00:01 Senior Strategy Analyst/Pulse Ox/q 30 min VS ordered. mm11 00:01 IV Saline Lock ordered. mm11 00:01 Rhythm Strip to chart ordered. mm11 00:01 Undress patient appropriately for examination ordered. mm11 00:02 ECHOCARDIOGRAM,DOPPLER/COLOR FLOW+CARDIAG ordered. EDMS 00:02 B-Type Natiuretic Peptide Ordered. EDMS 00:02 Basic Metabolic Profile Ordered. EDMS 00:02 CBC with Diff Ordered. EDMS 00:02 Cardiac Injury Profile Ordered. EDMS 00:02 Troponin Ordered. EDMS 00:03 ECG WITH READING ER PHYS+CARDIAG ordered. EDMS 00:03 Chest, 2 View (pa\E\lat) Ordered. EDMS 00:03 UA Ordered. EDMS 00:09 LIVER PROFILE Ordered. EDMS 00:26 Duplex, Ext LOWER veins, bilat Ordered. EDMS 01:03 Financial registration complete. gjb 01:41 B-Type Natiuretic Peptide Reviewed. mm11 01:41 Basic Metabolic Profile Reviewed. mm11 01:41 CBC with Diff Reviewed. mm11 01:41 LIVER PROFILE Reviewed. mm11 01:41 Cardiac Injury Profile Reviewed. mm11 01:41 Troponin Reviewed. mm11 01:44 CT Chest Without Contrast Ordered. EDMS 01:44 CT ABD & PELVIS: No Contrast Ordered. EDMS 02:01 [facility] Payment Agreement was scanned into [employer] and attached to record. gjb 02:36 UA Reviewed. mm11 02:36 Duplex, Ext LOWER veins, bilat Reviewed. mm11 04:24 Furosemide 20 mg IVP once ordered. mm11 12:38 T-Sheet-- Draft Copy was scanned into [employer] and attached to record. 15:53 Radiology Report was scanned into [employer] and attached to record. gb 04/22 13:05 ECG/EKG was scanned into [employer] and attached to record. gb Administered Medications: 04/21 04:33 Drug: Furosemide 20 mg [furosemide 10 mg/mL injection solution (2 mL)] Route: IVP; mv5 Site: left hand; 05:18 Follow up: Response: No Adverse Reaction mv5 Signatures: Dispatcher [employer] EDMS Ivania Bryant, Reg Reg gb Mikey Lim, DO DO mm11 Alicia Khan, RN RN sls1 Bernice Snow Megan,RN RN mv5 The chart was reviewed and I authenticate all verbal orders and agree with the evaluation and treatment provided.Corrections: (The following items were deleted from the chart) 00:09 00:03 LIVER PROFILE+LAB ordered. EDMS EDMS 00:26 00:05 Duplex, Ext,LOWER veins,unilat+US ordered. EDMS EDMS Attachments: 02:01 [facility] [place] Agreement gjb 12:38 T-Sheet-- Draft Copy gb 04/22 13:05 ECG/EKG gb Chart Complete MTDD
--- NOTE | 2016-04-23 06:20 | EDDOCDS ---
Nurse's Notes [facility] Name: Abdirahman Bowen Age: 21 yrs Sex: Female : 1995 Arrival Date: 04/20/2016 Time: 23:10 Bed 6 Private MD: Alma Delia Irwin Diagnosis: Edema, not elsewhere classified Presentation: 04/20 23:15 Presenting complaint: Patient states: C section Thursday night, reports bilateral leg sls1 swelling, increasing in severity up to abdomen, with pain pt does have noted bilateral plus three non pitting edema, reports shortness of breath, and pain with flexion. Pt also reports 27 pound weight gain. Adult Sepsis Screening: The patient does not have new or worsening altered mentation. Patient's respiratory rate is less than 22. Systolic blood pressure is greater than 100. Patient has a qSOFA score of 0- Negative Sepsis Screen. Suicide/Homicide risk assessment- the patient denies having any suicidal and/or homicidal ideations and does not present with any other emotional, behavioral or mental health complaints. Status: Patient is not a retail service representative or dependent. Transition of care: patient was not received from another setting of care. 23:15 Acuity: ALBERTO Level 3 sls1 23:15 Method Of Arrival: Walkin/Carried/Asstd sls1 Triage Assessment: 23:17 General: Appears in no apparent distress, Behavior is appropriate for age, cooperative. sls1 Pain: Location: right leg and left leg Pain currently is 9 out of 10 on a pain scale. Pt Declines HIV testing. Neurological: No deficits noted. Cardiovascular: pt has noted bilateral non pitting plus three edema. Respiratory: Airway is patent Respiratory effort is even, unlabored, Respiratory pattern is regular, symmetrical, Reports shortness of breath at rest on exertion. Derm: No deficits noted. Historical: - Allergies: IODINEIODINE CONTAINING; Betadine; - Home Meds: 1. Percocet 5-325 mg Oral tab 1 tab every 4 hours 2. ibuprofen 600 mg Oral tab 1 tab 4 times per day - PMHx: brain cyst; - PSHx: Left hand web removal; c section; - Social history: Smoking status: Patient states was never smoker of tobacco. No barriers to communication noted, The patient speaks fluent Sami, Speaks appropriately for age. - Family history: Pertinent for mother dx CHF after first childbirth. - : The pt / caregiver states he / she is not on anticoagulants. Home medication list is obtained from the patient. - Exposure Risk Screening:: None identified. Screenin/20 02:02 Screening information is obtained from the patient. Fall risk: No risks identified. mv5 Assistance ADL's: requires no assistance with activities of daily living. Abuse/DV Screen: The patient / caregiver reports he/she is: not in a situation that causes fear, pain or injury. Nutritional screening: No deficits noted. Advance Directives: There is no active DNR order. home support is adequate. Assessment: 02:02 General: Appears in no apparent distress, comfortable, well nourished, well groomed, mv5 Behavior is cooperative, pleasant. Pain: Location: right leg and left leg Pain currently is 5 out of 10 on a pain scale. Neurological: Level of Consciousness is awake, alert, Oriented to person, place, time. Cardiovascular: Capillary refill < 3 seconds. Respiratory: Airway is patent Respiratory effort is even, unlabored, Respiratory pattern is regular, symmetrical. Derm: Skin is pink, warm & dry. 03:05 General: Appears in no apparent distress, comfortable. Neurological: Level of mv5 Consciousness is awake, alert, Oriented to person, place, time. Respiratory: Airway is patent Respiratory effort is even, unlabored, Respiratory pattern is regular, symmetrical. Derm: Skin is pink, warm & dry. 04:08 General: Appears in no apparent distress, to be sleeping. Neurological: Oriented to mv5 person, place, time. Respiratory: Airway is patent Respiratory effort is even, unlabored, Respiratory pattern is regular, symmetrical. Derm: Skin is pink, warm & dry. 04:34 General: Appears in no apparent distress, comfortable. Neurological:. Neurological: No mv5 deficits noted. Respiratory: Airway is patent Respiratory effort is even, unlabored. Derm: Skin is pink, warm & dry. 05:15 General: Appears in no apparent distress, comfortable, Behavior is cooperative, mv5 pleasant. Neurological: No deficits noted. Respiratory: Airway is patent Respiratory effort is even, unlabored, Respiratory pattern is regular, symmetrical. Derm: Skin is pink, warm & dry. Vital Signs: 04/20 23:11 BP 135 / 70; Pulse 91; Resp 18 S; Temp 98.7(O); Pulse Ox 100% on R/A; Weight 121.11 kg gr2 (R); Height 5 ft. 1 in. (154.94 cm) (R); Pain 8/10; 04/21 01:31 BP 122 / 58 (auto/); mv5 01:32 Pulse Ox 100% ; mv5 02:01 BP 130 / 62 (auto/); mv5 02:01 Pulse 85; Resp 16; Pulse Ox 96% ; mv5 03:31 BP 127 / 59; Pulse 75; Resp 16; Pulse Ox 95% on R/A; mv5 03:39 BP 135 / 62 (auto/); mv5 03:40 Pulse 90; Resp 18; Pulse Ox 95% ; mv5 04:09 BP 138 / 65 (auto/); mv5 04:10 Pulse 86; Resp 16; Pulse Ox 94% ; mv5 05:11 BP 114 / 59 (auto/); mv5 05:11 Pulse 89; Resp 16; Temp 99.1(TE); Pulse Ox 99% ; mv5 04/20 23:11 Body Mass Index 50.45 (121.11 kg, 154.94 cm) gr2 Vitals: 04/20 23:11 Log In Time: April 20, 2016 at 23:11. gr2 ED Course: 23:10 Patient visited by Fariba Tai. gr2 23:10 Patient moved to Waiting gr2 23:11 Alma Delia Irwin MD is Private Physician. gr2 23:12 Patient visited by Fariba Tai. gr2 23:12 Patient moved to Pre RCE gr2 23:16 Triage Initiated sls1 23:19 Patient moved to Waiting sls1 23:28 Denise Whitt,RN is Primary Nurse. mar 24:28 Patient moved to 6 mar 23:45 Danielle Lim DO is Attending Physician. mm11 23:45 Patient visited by Danielle Lim DO. mm11 04/21 00:00 Patient visited by Danielle Lim DO. mm11 00:12 Patient moved to Ultrasound en 00:16 Patient visited by Abdirahman Newman PCA. dale 00:16 EKG done. (by ED staff). Reviewed by Danielle Lim DO. dale 01:05 Patient moved to 6 en 01:06 Patient moved to Radiology santos 01:44 Patient moved to 6 santos 01:46 Patient visited by Abdirahman Newman PCA. dale 02:01 [facility] Payment Agreement was scanned into Sand Sign and attached to record. gjb 02:02 Inserted saline lock: 22 gauge in left hand The patient tolerated the procedure well. mv5 02:07 UA Sent. dale 02:21 Duplex, Ext LOWER veins, bilat Returned. EDMS 02:27 Patient visited by Denise Whitt,RN. mv5 03:04 Patient visited by Denise Whitt,EVER. mv5 03:42 Patient visited by Denise Whitt,EVER. mv5 03:55 CT Chest Without Contrast Returned. EDMS 03:55 CT ABD & PELVIS: No Contrast Returned. EDMS 04:30 Patient visited by Danielle Lim DO. mm11 05:01 Patient visited by Danielle Lim DO. mm11 05:01 Jaqui Sheehan MD is Referral Physician. mm11 05:11 The patient / caregiver is instructed regarding the plan of care and ED course. mv5 05:11 Discontinued lock intact, bleeding controlled, pressure dressing applied, No mv5 redness/swelling at site. No procedures done that require assistance. 08:11 Chest, 2 View (pa\E\lat) Returned. EDMS 12:38 T-Sheet-- Draft Copy was scanned into Sand Sign and attached to record. gb 15:53 Radiology Report was scanned into Sand Sign and attached to record. gb 20:14 EKG-ADULT Returned. EDMS 02 06:08 ECHOCARDIOGRAM,DOPPLER/COLOR FLOW Returned. EDMS 13:05 ECG/EKG was scanned into Sand Sign and attached to record. gb Administered Medications: 04/21 04:33 Drug: Furosemide 20 mg [furosemide 10 mg/mL injection solution (2 mL)] Route: IVP; mv5 Site: left hand; 05:18 Follow up: Response: No Adverse Reaction mv5 Output: 04:58 Urine: 800.00ml (Voided); Total: 800.00ml. mv5 05:11 Urine: 400.00ml (Voided); Total: 1200.00ml. mv5 Order Results: Lab Order: B-Type Natiuretic Peptide; SPEC'M 04/21/16 00:00 Test: BRAIN NATRIURETIC PEPTIDE; Value: 157; Range: <100; Abnormal: Above high normal; Units: PG/ML; Status: F Lab Order: Basic Metabolic Profile; SPEC04/21/16 00:00 Test: GLUCOSE, FASTING; Value: 89; Range: 70-105; Units: MG/DL; Status: F Test: BLOOD UREA NITROGEN; Value: 14; Range: 7-18; Units: MG/DL; Status: F Test: CREATININE FOR GFR; Value: 0.62; Range: 0.55-1.02; Units: MG/DL; Status: F Test: GLOMERULAR FILTRATION RATE; Value: > 60.0; Range: >60; Status: F Test: SODIUM LEVEL; Value: 140; Range: 136-145; Units: MEQ/L; Status: F Test: POTASSIUM SERUM; Value: 4.0; Range: 3.5-5.1; Units: MEQ/L; Status: F Test: CHLORIDE LEVEL; Value: 106; Range: 98-107; Units: MEQ/L; Status: F Test: CARBON DIOXIDE LEVEL; Value: 26; Range: 21-32; Units: MEQ/L; Status: F Test: ANION GAP; Value: 8; Range: 8-16; Units: MEQ/L; Status: F Test: CALCIUM LEVEL; Value: 8.0; Range: 8.5-10.1; Abnormal: Below low normal; Units: MG/DL; Status: F Test Note: ; Units are mL/min/1.73 m2 Chronic Kidney Disease Staging per NKF: Stage I & II GFR >=60 Normal to Mildly Decreased Stage III GFR 30-59 Moderately Decreased Stage IV GFR 15-29 Severely Decreased Stage V GFR <15 Very Little GFR Left ESRD GFR <15 on BROADCASTING EQUIPMENT MECHANIC Lab Order: CBC with Diff; SPEC'04/21/16 00:00 Test: WHITE BLOOD COUNT; Value: 7.9; Range: 4.0-10.0; Units: K/mm3; Status: F Test: RED BLOOD COUNT; Value: 3.35; Range: 4.00-5.40; Abnormal: Below low normal; Units: M/mm3; Status: F Test: HEMOGLOBIN; Value: 8.9; Range: 12.0-16.0; Abnormal: Below low normal; Units: g/dl; Status: F Test: HEMATOCRIT; Value: 28.4; Range: 36.0-47.0; Abnormal: Below low normal; Units: %; Status: F Test: MEAN CORPUSCULAR VOLUME; Value: 84.8; Range: 80.0-96.0; Units: fl; Status: F Test: MEAN CORPUSCULAR HEMOGLOBIN; Value: 26.7; Range: 27.0-33.0; Abnormal: Below low normal; Units: pg; Status: F Test: MEAN CORPUSCULAR HGB CONC; Value: 31.5; Range: 32.0-36.5; Abnormal: Below low normal; Units: g/dl; Status: F Test: RED CELL DISTRIBUTION WIDTH; Value: 14.1; Range: 11.5-14.5; Units: %; Status: F Test: PLATELET COUNT, AUTOMATED; Value: 333; Range: 150-450; Units: k/mm3; Status: F Test: NEUTROPHILS %; Value: 66.0; Range: 36.0-66.0; Units: %; Status: F Test: LYMPH %; Value: 22.7; Range: 24.0-44.0; Abnormal: Below low normal; Units: %; Status: F Test: MONO %; Value: 5.2; Range: 0.0-5.0; Abnormal: Above high normal; Units: %; Status: F Test: EOS %; Value: 4.7; Range: 0.0-3.0; Abnormal: Above high normal; Units: %; Status: F Test: BASO %; Value: 0.3; Range: 0.0-1.0; Units: %; Status: F Test: LARGE UNSTAINED CELL %; Value: 1.1; Range: 0.0-4.0; Units: %; Status: F Test: NEUTROPHILS #; Value: 5.2; Range: 1.8-7.7; Units: K/mm3; Status: F Test: LYMPH #; Value: 1.9; Range: 1.5-6.5; Units: K/mm3; Status: F Test: MONO #; Value: 0.4; Range: 0.0-0.8; Units: K/mm3; Status: F Test: EOS #; Value: 0.4; Range: 0.0-0.50; Units: K/mm3; Status: F Test: BASO #; Value: 0.0; Range: 0.0-0.2; Units: K/mm3; Status: F Test: LARGE UNSTAINED CELL #; Value: 0.1; Range: 0.0-0.4; Units: K/mm3; Status: F Lab Order: Cardiac Injury Profile; [facility] 04/21/16 00:00 Test: CPK CREATINE PHOSPHOKINASE; Value: 82; Range: 26-192; Units: U/L; Status: F Test: CK-MB VALUE MASS; Value: 1.9; Range: 0.0-3.6; Units: NG/ML; Status: F Test: MB/CK RELATIVE INDEX; Value: 2.31; Range: < OR =4; Status: F Test Note: ; DIAGNOSIS CRITERIA MMB ng/ml Relative Index (RI) NON-AMI < or = 5 N/A SUBRAMANIAN ZONE > 5 < or = 4 AMI > 5 > 4 Lab Order: Troponin; [facility] 04/21/16 00:00 Test: TROPONIN I; Value: < 0.02; Range: < 0.10; Units: NG/ML; Status: F Test Note: ; Troponin I Reference Interval for Atavist LOCI: 99th Percentile= 0.00-0.045 ng/ml Risk Stratification: <= 0.10 ng/ml Decreased Risk for Adverse Clinical Events. 0.10-1.50 ng/ml Increased Risk for Adverse Clinical Events. Evaluation of additional criterion and/or repeat testing in 2-6 hours is suggested to rule out myocardial damage. >= 1.50 ng/ml Indicative of Myocardial Injury. Lab Order: UA; SPEC' 04/21/16 02:05 Test: APPEARANCE, URINE; Value: HAZY; Range: CLEAR; Status: F Test: COLOR, URINE; Value: YELLOW; Range: YELLOW; Status: F Test: PH,URINE; Value: 6.0; Range: 5.0-9.0; Units: UNITS; Status: F Test: SPECIFIC GRAVITY URINE AUTO; Value: 1.014; Range: 1.002-1.035; Status: F Test: PROTEIN, URINE AUTO; Value: NEGATIVE; Range: NEGATIVE; Units: mg/dL; Status: F Test: GLUCOSE, URINE (UA) AUTO; Value: NEGATIVE; Range: NEGATIVE; Units: mg/dL; Status: F Test: KETONE, URINE AUTO; Value: NEGATIVE; Range: NEGATIVE; Units: mg/dL; Status: F Test: UROBILINOGEN, URINE AUTO; Value: 0.2; Range: 0.0-2.0; Units: mg/dL; Status: F Test: BILIRUBIN, URINE AUTO; Value: NEGATIVE; Range: NEGATIVE; Status: F Test: NITRITE, URINE AUTO; Value: NEGATIVE; Range: NEGATIVE; Status: F Test: LEUKOCYTE ESTERASE, URINE AUTO; Value: 2+; Range: NEGATIVE; Abnormal: Above high normal; Status: F Test: BLOOD, URINE BLOOD; Value: 3+; Range: NEGATIVE; Abnormal: Above high normal; Status: F Test: WBC, URINE AUTO; Value: 20; Range: 0-3; Abnormal: Above high normal; Units: /HPF; Status: F Test: RBC, URINE AUTO; Value: 85; Range: 0-3; Abnormal: Above high normal; Units: /HPF; Status: F Test: BACTERIA, URINE AUTO; Value: NEGATIVE; Range: NEGATIVE; Status: F Test: SQUAMOUS EPITHELIAL CELL UR AU; Value: 4; Range: 0-6; Units: /HPF; Status: F Test: MUCUS, URINE; Value: SMALL; Range: NEGATIVE; Status: F Test: HYALINE CAST, URINE AUTO; Value: 0; Range: 0-1; Units: /LPF; Status: F Test: AMORPHOUS SEDIMENT; Value: SMALL; Range: NEGATIVE; Abnormal: Above high normal; Status: F Lab Order: LIVER PROFILE; SPEC'M 04/21/16 00:00 Test: AST/SGOT; Value: 44; Range: 15-37; Abnormal: Above high normal; Units: U/L; Status: F Test: ALT/SGPT; Value: 38; Range: 12-78; Units: U/L; Status: F Test: ALKALINE PHOSPHATASE; Value: 125; Range: 45-117; Abnormal: Above high normal; Units: U/L; Status: F Test: BILIRUBIN,TOTAL; Value: 0.2; Range: 0.2-1.0; Units: MG/DL; Status: F Test: BILIRUBIN,DIRECT; Value: < 0.1; Range: 0.0-0.2; Units: MG/DL; Status: F Test: TOTAL PROTEIN; Value: 6.4; Range: 6.4-8.2; Units: GM/DL; Status: F Test: ALBUMIN; Value: 2.1; Range: 3.2-5.2; Abnormal: Below low normal; Units: GM/DL; Status: F Test: ALBUMIN/GLOBULIN RATIO; Value: 0.49; Range: 1.00-1.93; Abnormal: Below low normal; Status: F Radiology Order: ECHOCARDIOGRAM,DOPPLER/COLOR FLOW Test: ECHOCARDIOGRAM,DOPPLER/COLOR FLOW DATE OF PROCEDURE: 04/21/2016; ; AGE: 21; GENDER: Female; REFERRING PHYSICIAN: Dr. Danielle Lim.; HEIGHT: 61 inches.; WEIGHT: 267 pounds.; BODY SURFACE AREA: 2.14 sq m.; ER PATIENT:; ; INDICATION: Dyspnea. 5 days section.; ; MEASUREMENTS:; ; 2D MEASUREMENTS:; RV - 4.0 cm; LV- 5.5 cm; Septum - 1.0 cm; Posterior wall - 1.0 cm; Aortic root - 2.4 cm; LA - 4.0 cm; LVEF - 65%; ; DOPPLER MEASUREMENTS:; AV - 1.7 m/s; LVOT - 1.3 m/s; MV-E: 170 A: 85 EA ratio 1.9; Early mitral deacceleration time - 194 ms; E-prime - 12; A-prime - 8; E/E prime ratio - 13.8; PV - 1.1 m/s; Pulmonary artery acceleration time - 134 ms; RVSP - 37 mmHg; IVC - 1.8 cm; ; COMMENTS: Normal sinus rhythm without intraventricular conduction disturbance.; ; Mildly dilated left atrium. Left ventricle upper limits of normal in size.; Right heart chamber sizes were normal. LV wall thickness was normal. On; real-time imaging from the parasternal and apical projections, wall motion was; symmetrical and normal to hyperkinetic. Normal-appearing mitral valvular; apparatus and leaflet excursion with no posterior systolic buckling. Three equal; size aortic cusps of normal thickness and cusp separation. Normal aortic root; size. No apparent intracardiac mass or pericardial effusion.; ; Color flow Doppler study taken from the parasternal and apical projections showed; mild mitral and moderate tricuspid but no aortic insufficiency.; ; Guided continuous wave Doppler of her aortic valve showed a normal peak systolic; velocity against LV outflow tract obstruction.; ; Pulsed and continuous wave Doppler of her LV inflow tract taken from the apical; four-chamber projection showed normal diastolic filling velocities against mitral; stenosis. The filling pattern was also normal against LV diastolic dysfunction; but current estimated mean left atrial pressure was at least mildly increased at; 18 mmHg.; ; Pulsed and continuous wave Doppler of her pulmonary trunk showed a normal peak; systolic velocity against right ventricular outflow tract obstruction. Pulmonary; artery acceleration time was normal against an elevated pulmonary vascular; resistance.; ; Guided continuous wave Doppler of her tricuspid valve allowed our estimation of; her right ventricular systolic pressure (mildly increased). Her inferior vena; cava was of normal size with normal respiratory collapse against an elevated; central venous pressure.; ; CONCLUSIONS:; Normal left ventricular size, wall thickness and hyperkinetic wall motion.; Mildly dilated left atrium with normal Doppler assessment of LV diastolic; function but currently mildly elevated mean left atrial pressure (suggestive of; fluid overload).; Normal right heart chamber sizes and wall motion with Doppler evidence of mild; pulmonary hypertension.; Normal IVC size and collapse against a significantly elevated central venous; pressure.; Normal appearing mitral and tricuspid valvular apparatus with mild mitral and; moderate tricuspid insufficiency.; Radiology Order: Chest, 2 View (pa\E\lat) Test: Chest, 2 View (pa\E\lat) REASON FOR EXAMINATION: Shortness of Breath; Clinical: Shortness of breath .; ; Comparison: None of the .; ; Technique: PA and lateral.; ; Findings:; The mediastinum and cardiac silhouette are normal. The lung desai are clear and; without acute consolidation, effusion, or pneumothorax. The skeletal structures; are intact and normal.; ; Impression:; 1. No acute cardiopulmonary process.; ; ; Signed by; Alfredo Dewitt MD 04/21/2016 07:48 A; Radiology Order: EKG-ADULT Test: EKG-ADULT REASON FOR EXAMINATION: Shortness of Breath; Stationary ECG Study; [facility] - ED; ; Test Date: 2016-04-21; Pat Name: ABDIRAHMAN BOWEN Department:; Room: -; Gender: F Evs Manager: fidelia; : 1995 Requested By: DANIELLE Walker; Order Number: [id number] David MD: Lolita Gil; Measurements; Intervals [place]; Rate: 84 P: 36; AR: 121 QRS: 14; QRSD: 89 T: 32; QT: 337; QTc: 399; Interpretive Statements; SINUS RHYTHM; INCREASED RATE 12/06/12; Electronically Signed On 04-21-2016 20:08:30 EST by Lolita Gil; Radiology Order: Duplex, Ext LOWER veins, bilat Test: Duplex, Ext LOWER veins, bilat REASON FOR EXAMINATION: Deformity/Swelling; ; CLINICAL HISTORY: Edema.; COMMENTS:; ; Real time sonography with duplex doppler of the extremities bilaterally was performed with attention; to the major deep venous structures.; Evaluation reveals the common femoral, superficial femoral and popliteal veins bilaterally to be comp; letely compressible without intraluminal thrombus. There is normal spontaneous phasic flow and augmen; tation in all deep veins. The greater saphenous/common femoral vein junctions are patent bilaterally.; ; IMPRESSION:; No evidence of DVT in the lower extremities bilaterally.; Thank you for your kind referral of this patient.; ; Radiology Order: CT Chest Without Contrast Test: CT Chest Without Contrast REASON FOR EXAMINATION: Shortness of Breath; ; CLINICAL HISTORY: Shortness of breath.; TECHNIQUE: Multiple axial CT images were obtained through chest with IV contrast material. MPR haines; l and sagittal sequences were obtained.; COMMENTS:; There is no evidence of pleural or parenchymal mass. There are no pleural effusions. There is no evid; ence of hilar or mediastinal lymphadenopathy. The heart and great vessels are within normal limits.; Bilateral basilar atelectatic pulmonary changes.; The visualized portions of the liver are of uniform attenuation without mass or defect. There is no i; ntra or extrahepatic biliary ductal dilatation. The spleen is unremarkable. The visualized pancreas i; s of normal contour and attenuation characteristics. There is no evidence of adrenal mass. The visual; ized portions of the kidneys present no abnormalities.; The bony structures are free of lytic or blastic lesions.; Moderate large bowel fecal stasis.; IMPRESSION:; Bilateral basilar atelectatic pulmonary changes.; Thank you for your kind referral of this patient.; ; ; Radiology Order: CT ABD & PELVIS: No Contrast Test: CT ABD & PELVIS: No Contrast REASON FOR EXAMINATION: NEW ONSET ASCITES; ; CLINICAL HISTORY: Abdominal pain.; TECHNIQUE: Multiple axial, sagittal and coronal CT images were obtained through the abdomen and pelvi; s without administration of oral or IV contrast material.; COMMENTS:; The liver is of uniform attenuation without mass or defect. There is no intra or extrahepatic biliary; ductal dilatation. The spleen is normal. The gallbladder is distended. The pancreas is of normal con; tour and attenuation characteristics. There is no evidence of adrenal mass.; The kidneys are normal in size, shape and configuration. No renal or ureteral calculi are identified.; There is no hydroureter or hydronephrosis.; There is no evidence for appendicitis. There is no bowel wall thickening. No evidence for small or la; rge bowel obstruction. There is no evidence of abdominal ascites or lymphadenopathy.; There is no evidence of intrinsic or extrinsic bladder mass. There is no pelvic ascites or lymphadeno; jefferson. Moderate-sized fecal stasis.; Post gravid uterus. Free fluid and fat stranding in the pelvis. Diffuse thickening of the bladder.; Cutaneous fat stranding and edema of the lower aspect of the anterior abdominal wall from recent surg; ical intervention.; Images of the lung bases show no evidence of pleural or parenchymal mass. There are no pleural effusi; ons. Bilateral basilar atelectatic pulmonary changes.; The bony structures are free of lytic or blastic lesions.; IMPRESSION:; Post gravid uterus.; Surgical changes.; No drainable fluid collection.; Subcutaneous fat stranding with a soft tissue emphysema of the lower aspect of the anterior abdominal; wall. Probably postsurgical.; Constipation.; Distended gallbladder.; Thank you for your kind referral of this patient.; ; Outcome: 05:04 Discharge ordered by Provider. mm11 05:11 Discharge Assessment: Patient awake, alert and oriented x 3. No cognitive and/or mv5 functional deficits noted. Patient verbalized understanding of disposition instructions. patient administered narcotics - no. The following High Risk Discharge criteria are identified: None. Discharged to home with family. Condition: stable. Demonstrated understanding of Pt was receptive of discharge instructions/ teaching. Prescriptions given X 1. CT Study completed. Property sent home with patient. 05:18 Patient left the ED. mv5 Signatures: Dispatcher [employer] EDMS Cally Mendoza, RN RN mikael Hylton, Ivania Choi, Reg Reg Danielle Barrow, DO mm11 Abdirahman Newman, CLINICAL QUALITY ASSURANCE ASSOCIATE CLINICAL QUALITY ASSURANCE ASSOCIATE dale Alicia Khan, RN RN sls1 Fariba Tai gr2 AriannaLaura boles, Bernice cesarb Denise Whitt,RN RN mv5 Corrections: (The following items were deleted from the chart) 04/20 23:19 23:15 Presenting complaint: Patient states: C section Thursday night, reports sls1 bilateral leg swelling, increasing in severity up to abdomen, with pain pt does have noted bilateral plus three non pitting edema, reports shortness of breath, and pain with flexion sls1 04/21 03:07 02:56 BP 97 / 53 Auto; mv5 mv5 03:07 02:57 Pulse 84bpm; Monitor; Pulse Ox 94%; mv5 mv5 03:07 02:41 BP 98 / 54 Auto; mv5 mv5 03:07 02:42 Pulse 84bpm; Monitor; Pulse Ox 94%; mv5 mv5 03:07 02:26 BP 99 / 56 Auto; mv5 mv5 03:07 02:27 Pulse 84bpm; Monitor; Pulse Ox 94%; mv5 mv5 04:36 03:40 Pulse Ox 95%; mv5 mv5 Chart Complete MTDD
== END 2016-04-21 05:18 | disposition home or self-care (01) ==
LOC: M ED 23:10
DX: R60.9 Edema, unspecified (principal); G93.0 Cerebral cysts; Z82.49 Family history of ischemic heart disease and other diseases of the circulatory system; Z88.8 Allergy status to other drugs, medicaments and biological substances
CPT/HCPCS: 71020; 71250; 74176; 80048; 80076; 81001; 82550; 82553; 83880; 85025; 93005; 93970; 99284; J1940

== ENCOUNTER → 2017-09-24 | Outpatient (CLI) | payer MEDICAID ==
[2017-09-24 09:51] LABS: BASO % 0.3 % (0.0-1.0); EOS # 0.1 10^3/uL (0.0-0.50); EOS % 0.9 % (0.0-3.0); HEMATOCRIT 39.3 % (36.0-47.0); HEMOGLOBIN 12.7 g/dl (12.0-15.5); IMMATURE GRANULOCYTE % 0.6 % (0-3.0); LYMPH % 22.5 % (24.0-44.0); MEAN CORPUSCULAR HEMOGLOBIN 28.3 pg (27.0-33.0); MEAN CORPUSCULAR HGB CONC 32.3 g/dl (32.0-36.5); MEAN CORPUSCULAR VOLUME 87.5 fl (80.0-96.0); MONO # 0.6 10^3/uL (0.0-0.8); MONO % 6.6 % (0.0-5.0); NEUTROPHILS # 6.1 10^3/uL (1.8-7.7); NEUTROPHILS % 69.1 % (36.0-66.0); PLATELET COUNT, AUTOMATED 229 10^3/uL (150-450); RED BLOOD COUNT 4.49 10^6/uL (4.00-5.40); RED CELL DISTRIBUTION WIDTH 14.6 % (11.5-14.5); WHITE BLOOD COUNT 8.8 10^3/uL (4.0-10.0)
[2017-09-24 11:33] LABS: CHLAMYDIA DNA AMPLIFICATION NEGATIVE (NEGATIVE); GC DNA AMPLIFICATION NEGATIVE (NEGATIVE)
[2017-09-25 10:01] LABS: RUBELLA IgG QUALITATIVE IMMUNE (IMMUNE)
[2017-09-25 10:14] LABS: HBsAg Prenatal NEGATIVE (NEGATIVE); HEPATITIS B SURFACE ANTIGEN NEGATIVE (NEGATIVE)
[2017-09-25 10:31] LABS: HIV 1&2 SCREEN CENTAUR NEGATIVE (NEGATIVE)
[2017-09-25 10:31] LABS: HEPATITIS C VIRUS ABY INDEX 0.3 INDEX (<0.8)
== END ==
LOC: M LAB 07:07
DX: Z34.81 Encounter for supervision of other normal pregnancy, first trimester (principal)
CPT/HCPCS: 86762

== ENCOUNTER → 2017-09-24 | Outpatient (CLI) | payer MEDICAID | LOC: M RAD 07:03 | DX: Z34.82 Encounter for supervision of other normal pregnancy, second trimester (principal) | CPT/HCPCS: 76811 ==

== ENCOUNTER → 2017-10-20 | Outpatient (CLI) | payer OTHER, MEDICAID | LOC: M RAD 13:49 | DX: Z34.82 Encounter for supervision of other normal pregnancy, second trimester (principal) | CPT/HCPCS: 76816 ==

== ENCOUNTER → 2017-12-03 | Outpatient (CLI) | payer OTHER ==
[2017-12-03 08:54] LABS: BASO % 0.2 % (0.0-1.0); EOS # 0.1 10^3/uL (0.0-0.50); EOS % 0.7 % (0.0-3.0); HEMATOCRIT 36.1 % (36.0-47.0); HEMOGLOBIN 11.7 g/dl (12.0-15.5); IMMATURE GRANULOCYTE % 0.5 % (0-3.0); LYMPH # 1.8 10^3/uL (1.5-6.5); LYMPH % 17.9 % (24.0-44.0); MEAN CORPUSCULAR HEMOGLOBIN 29.5 pg (27.0-33.0); MEAN CORPUSCULAR HGB CONC 32.4 g/dl (32.0-36.5); MEAN CORPUSCULAR VOLUME 91.2 fl (80.0-96.0); MONO # 0.6 10^3/uL (0.0-0.8); MONO % 5.4 % (0.0-5.0); NEUTROPHILS # 7.7 10^3/uL (1.8-7.7); NEUTROPHILS % 75.3 % (36.0-66.0); PLATELET COUNT, AUTOMATED 232 10^3/uL (150-450); RED BLOOD COUNT 3.96 10^6/uL (4.00-5.40); RED CELL DISTRIBUTION WIDTH 13.7 % (11.5-14.5); WHITE BLOOD COUNT 10.2 10^3/uL (4.0-10.0)
[2017-12-03 09:12] LABS: GLUCOSE CHALLENGE TEST 1 HOUR 164 MG/DL (LESS THAN 140)
== END ==
LOC: M LAB 07:14
DX: Z34.83 Encounter for supervision of other normal pregnancy, third trimester (principal); Z36.89 Encounter for other specified antenatal screening
CPT/HCPCS: 82950

== ENCOUNTER 2017-12-09 08:07 | Outpatient (CLI) | payer OTHER ==
[2017-12-09 09:09] LABS: GLUCOSE, FASTING 90 MG/DL (LESS THAN 95)
[2017-12-10 07:56] LABS: GLUCOSE, FASTING 84 MG/DL (LESS THAN 95)
[2017-12-10 08:55] LABS: 1 HR GLUCOSE 149 MG/DL (LESS THAN 180)
[2017-12-10 10:37] LABS: 2 HR GLUCOSE 123 MG/DL (LESS THAN 155)
[2017-12-10 11:13] LABS: 3 HR GLUCOSE 77 MG/DL (LESS THAN 140)
== END 2017-12-10 ==
LOC: M LAB 08:07
DX: Z34.83 Encounter for supervision of other normal pregnancy, third trimester (principal); Z3A.00 Weeks of gestation of pregnancy not specified
CPT/HCPCS: 82951

== ENCOUNTER → 2017-12-17 | Outpatient (REF) | payer OTHER | LOC: M LAB REF 12:51 | DX: Z34.83 Encounter for supervision of other normal pregnancy, third trimester (principal) ==

== ENCOUNTER → 2017-12-31 | Outpatient (REF) | payer OTHER, MEDICAID | LOC: M LAB REF 17:02 | DX: O34.211 Maternal care for low transverse scar from previous cesarean delivery (principal) | CPT/HCPCS: 87086 ==

== ENCOUNTER → 2018-01-28 | Outpatient (REF) | payer OTHER, MEDICAID | LOC: M LAB REF 13:09 | DX: Z36.89 Encounter for other specified antenatal screening (principal) | CPT/HCPCS: 87081 ==

== ENCOUNTER 2018-02-16 05:54 | Inpatient (IN) | payer OTHER ==
[2018-02-16] MEDS ORDERED: LR 1,000 ML IV (06:15)
[2018-02-16] MEDS: LR 1,000 ML IV ×4 (06:15→17:08)
[2018-02-16 06:34] LABS: HEMATOCRIT 35.4 % (36.0-47.0); HEMOGLOBIN 11.2 g/dl (12.0-15.5); MEAN CORPUSCULAR HEMOGLOBIN 27.9 pg (27.0-33.0); MEAN CORPUSCULAR HGB CONC 31.6 g/dl (32.0-36.5); MEAN CORPUSCULAR VOLUME 88.3 fl (80.0-96.0); PLATELET COUNT, AUTOMATED 209 10^3/uL (150-450); RED BLOOD COUNT 4.01 10^6/uL (4.00-5.40); RED CELL DISTRIBUTION WIDTH 13.2 % (11.5-14.5); WHITE BLOOD COUNT 10.9 10^3/uL (4.0-10.0)
[2018-02-16] MEDS: BICITRA 30ML SOLN UDC PO (07:27)
[2018-02-16] MEDS ORDERED: MORPHINE PRES-FREE INJ 10 MG/10 ML VIAL (J2274) As Ordered (07:28)
[2018-02-16] MEDS ORDERED: KETOROLAC 60 MG/2 ML VIAL (J1885) As Ordered (07:31)
[2018-02-16] MEDS ORDERED: OXYTOCIN INJ 10 UNITS/ML VIAL (J2590) As Ordered ×2 (07:31)
[2018-02-16] MEDS ORDERED: ONDANSETRON 4MG/2ML VIAL (J2405) IV ×3 (07:47→09:15)
[2018-02-16] MEDS ORDERED: NALOXONE INJ 0.4 MG/1 ML VIAL (J2310) IV ×2 (07:47)
[2018-02-16] MEDS ORDERED: NALBUPHINE HCL 10 MG/ML AMP (J2300) As Ordered (09:10)
[2018-02-16] MEDS ORDERED: OXYTOCIN 30 UNITS IN 0.9% NaCl 500ML IV BAG (J2590) As Ordered (09:11)
[2018-02-16] MEDS ORDERED: PERCOCET 5MG/325MG TAB PO (09:15)
[2018-02-16] MEDS ORDERED: METOCLOPRAMIDE INJ 10MG/2ML VIAL (J2765) IV (09:15)
[2018-02-16] MEDS ORDERED: MEPERIDINE INJ 25 MG/ML VIAL (J2175) IV (09:15)
[2018-02-16] MEDS ORDERED: DOCUSATE SODIUM 100 MG CAP PO (09:15)
[2018-02-16] MEDS ORDERED: KETOROLAC 30 MG/ML VIAL (J1885) IV (09:15)
[2018-02-16] MEDS ORDERED: fentaNYL 100 MCG/2 ML INJECTION (J3010) IV (09:15)
[2018-02-16] MEDS ORDERED: MOM 30ML SUSPENSION UDC PO (09:15)
[2018-02-16] MEDS: NALBUPHINE HCL 10 MG/ML AMP (J2300) IV ×2 (09:22→19:11)
[2018-02-16] MEDS: OXYTOCIN DRIP 30 UNITS in APPROPRIATE DILUENT 1 EA IV (09:32)
[2018-02-16] MEDS: KETOROLAC 30 MG/ML VIAL (J1885) IV ×2 (14:57→20:51)
[2018-02-16] MEDS: METOCLOPRAMIDE INJ 10MG/2ML VIAL (J2765) IV (17:39)
[2018-02-17] MEDS: LR 1,000 ML IV ×3 (01:08→17:08)
[2018-02-17] MEDS: KETOROLAC 30 MG/ML VIAL (J1885) IV (03:09)
[2018-02-17 06:59] LABS: HEMATOCRIT 29.2 % (36.0-47.0); MEAN CORPUSCULAR HEMOGLOBIN 27.8 pg (27.0-33.0); MEAN CORPUSCULAR HGB CONC 30.8 g/dl (32.0-36.5); MEAN CORPUSCULAR VOLUME 90.1 fl (80.0-96.0); PLATELET COUNT, AUTOMATED 184 10^3/uL (150-450); RED BLOOD COUNT 3.24 10^6/uL (4.00-5.40); RED CELL DISTRIBUTION WIDTH 13.3 % (11.5-14.5); WHITE BLOOD COUNT 9.3 10^3/uL (4.0-10.0)
[2018-02-17] MEDS: RHOGAM 300 MCG (1500 IU) INJ (J2790) IM (07:07)
[2018-02-17] MEDS: MEASLES,MUMPS,RUBELLA VACCINE INJ (MMR-II) (90707) SC (07:07)
[2018-02-17] MEDS: PERCOCET 5MG/325MG TAB PO ×2 (07:32→17:10)
[2018-02-17] MEDS: IBUPROFEN 800 MG TAB PO ×2 (11:38→18:18)
[2018-02-18] MEDS: PERCOCET 5MG/325MG TAB PO ×2 (00:30→07:31)
[2018-02-18] MEDS: IBUPROFEN 800 MG TAB PO ×2 (03:13→11:29)
== END 2018-02-18 11:35 | disposition home or self-care (01) | DRG 540 ==
LOC: M LDI 05:54 → M OBS 10:39
PROVIDERS: Obstetrics & Gynecology
PROC: 10D00Z1 Extraction of Products of Conception, Low, Open Approach (ICD-10-PCS; principal; 2018-02-16 07:30)
DX: O34.211 Maternal care for low transverse scar from previous cesarean delivery (principal); Z88.8 Allergy status to other drugs, medicaments and biological substances; Z37.0 Single live birth; Z3A.39 39 weeks gestation of pregnancy; Z91.013 Allergy to seafood

== ENCOUNTER → 2018-07-08 | Outpatient (REF) | payer OTHER ==
[~2018-07-08] MED LIST changes: +COLA100C5 PO; +IBUP1TAB7 PO; -IBUP800T23 PO; +MILK120011 PO; +PERCOCET PO; +PRENTAB29 PO; +TYLE500T78 PO
== END ==
LOC: M LAB REF 13:26
PROVIDERS: ATTEND Obstetrics & Gynecology
DX: Z12.4 Encounter for screening for malignant neoplasm of cervix (principal)

== ENCOUNTER → 2021-07-02 | Outpatient (REF) | payer OTHER | LOC: M PLALAB 11:23 | PROVIDERS: ATTEND Obstetrics & Gynecology | DX: Z12.4 Encounter for screening for malignant neoplasm of cervix (principal) ==

== ENCOUNTER → 2021-11-13 | Outpatient (CLI) | payer OTHER | LOC: M WHC 11:00 | PROVIDERS: ATTEND Obstetrics & Gynecology | DX: N93.9 Abnormal uterine and vaginal bleeding, unspecified (principal); N88.8 Other specified noninflammatory disorders of cervix uteri ==

== ENCOUNTER → 2021-12-13 | Outpatient (CLI) | payer OTHER ==
[2021-12-13 13:16] LABS: HEMATOCRIT 41.6 % (36.0-47.0); HEMOGLOBIN 12.8 g/dl (12.0-15.5); MEAN CORPUSCULAR HGB CONC 30.8 g/dl (32.0-36.5); MEAN CORPUSCULAR VOLUME 87.8 fl (80.0-96.0); PLATELET COUNT, AUTOMATED 285 10^3/uL (150-450); RED BLOOD COUNT 4.74 10^6/uL (4.00-5.40)
[2021-12-13 15:08] LABS: FREE T4 1.16 NG/DL (0.76-1.46); THYROID STIMULATING HORMONE 2.28 uIU/ML (0.358-3.740)
[2021-12-13 15:17] LABS: PROLACTIN 8.7 NG/ML
== END ==
LOC: M PLALAB 09:55
PROVIDERS: ATTEND Obstetrics & Gynecology
DX: N93.9 Abnormal uterine and vaginal bleeding, unspecified (principal)